=== PATIENT | female | born 1950 | race Caucasian/White ===

== ENCOUNTER 2020-05-09 00:25 | Outpatient (CLI) | payer MEDICARE, SELFPAY ==
[2020-05-09 18:04] LABS: SARS-CoV-2 RNA PCR Negative
== END 2020-05-09 00:26 | disposition home or self-care (01) ==
LOC: ANHCOVIDDT 00:25
PROVIDERS: PCP Family Medicine; Visit Provider Internal Medicine Gastroenterology
DX: Z01.818 Encounter for other preprocedural examination (principal); Z20.828 Contact with and (suspected) exposure to other viral communicable diseases
CPT/HCPCS: 87635; C9803; U0003

== ENCOUNTER 2020-05-12 02:24 | Day surgery (SDC) | payer MEDICARE, SELFPAY ==
[2020-05-08 08:16] VITALS: BMI 32.5
--- NOTE | 2020-05-12 07:00 | WPDANESEPPF ---
Anes - Initial Pre Proc Eval Procedure: Operation Date: 05/12/20 10:00 Proposed Procedures p Screening Colonoscopy - Eh Olguin MD Date/Time: 05/12/20 07:00 Surgeon: Eh Olguin MD Pre Op Diagnosis: Neoplasm Screening Patient Data Age: 70 Gender: F Height: 1.63 m Weight: 86 kg Allergies Allergy/AdvReac Type Severity Reaction Status Date / Time erythromycin base Allergy Mild rash Verified 05/12/20 08:53 Home Medications Medication Instructions Recorded Confirmed Type aspirin 81 mg chewable tablet 81 mg PO DAILY 05/27/19 05/08/20 History blood sugar diagnostic #10 each 05/27/19 03/25/20 History lancets 33 gauge #100 each 11/07/19 03/25/20 Rx pen needle, diabetic 32 gauge x #100 each 12/16/19 03/25/20 Rx 1/6 lisinopril 10 mg tablet 10 mg PO DAILY #90 tablet 02/10/20 05/08/20 Rx insulin degludec 100 unit/mL (3 34 unit SUB-Q DAILY #15 ml 02/11/20 05/08/20 Rx mL) subcutaneous pen esomeprazole magnesium 40 mg 40 mg PO DAILY #90 cap 02/13/20 05/08/20 Rx capsule,delayed release metformin 500 mg tablet,extended 500 mg PO .COMPLEX #180 tablet 02/25/20 05/08/20 Rx release 24 hr sodium,potassium,mag sulfates 17.5 480 ml PO .COMPLEX #354 ml 03/31/20 Rx gram-3.13 gram-1.6 gram oral soln liraglutide 0.6 mg/0.1 mL (18 mg/3 See Rx Instructions SUB-Q .COMPLEX 05/01/20 05/08/20 Rx mL) subcutaneous pen injector #9 ml atorvastatin 10 mg tablet 10 mg PO DAILY #90 tablet 05/04/20 05/08/20 Rx acidophilus-pectin, citrus 1 cap PO DAILY 05/08/20 05/08/20 History [Acidophilus Probiotic] Patient hx anesthesia problems: none Family hx anesthesia problems: none PMFSH Past Medical History Medical History (System 12/23/19 @ 13:41 by Chelsey Vang) CAD (coronary artery disease) Cervical radiculopathy Essential hypertension Fatty liver Hyperlipidemia Hypertensive heart disease without CHF Left hip pain Long-term insulin use Metabolic syndrome Numbness and tingling of left upper extremity Type 2 diabetes mellitus with hyperglycemia Type 2 diabetes mellitus without complications Vitamin D deficiency, unspecified Surgical History Surgical History (Updated 05/12/20 @ 09:02 by Chris Ramirez MD) History of coronary artery stent placement S/P arterial stent Family History Family History (System 12/23/19 @ 13:41 by Chelsey Vang) Mother Family history of kidney disease Family history of coronary artery disease Hypertension Father Family history of diabetes mellitus in first degree relative Family history of coronary artery disease Diabetes mellitus Sibling Family history of coronary artery disease Other Family history of cardiovascular disease Social History Social History (Updated 03/25/20 @ 14:45 by Sheree Stoner) Smoking status: Never smoker Second hand tobacco smoke exposure: No Alcohol intake: never Substance use: never Substance use type: does not use Living arrangements: with family Gender identity (if verbalized by the patient): Female Spiritual care concerns: No Anes - Eval Final PreProcedure Day of Procedure 05/12/20 07:00 Patient weight: obese Heart: regular rate and rhythm Lungs: clear to auscultation and normal air movement Airway: Mallampati scale class II Neurological: alert and oriented Last oral intake: >/= 8 hours ASA classification: III Emergent: no Anesthetic plan: proceed Anesthesia type and monitoring: general GIVS Informed Consent: The patient's anesthetic plan and its attendant risks and benefits were discussed with the patient/family/POA. Questions were solicited and answers provided to the satisfaction of the patient/family/POA.
[2020-05-12 08:54] VITALS: BP 140/65; PULSE 88; RESP 20; TEMP 36.7; O2SAT 96; BMI 33.7
[2020-05-12] MEDS: LACTATED RINGERS 1,000 ML 150 ML IV CONT (09:00)
[2020-05-12 09:05] LABS: Glucose Point of Care 168 (65-105)
--- NOTE | 2020-05-12 10:38 | PM.HPGS ---
History of Present Illness History of Present Illness Consent: Risks, benefits, and alternatives have been discussed and questions answered. Patient agrees to proceed with procedure. Chief complaint: Neoplasm Screening Narrative: Kelsey Marion is a 70 year old female here for colon polyps 2013 Review of Systems Constitutional: Constitutional: Denies headache(s) and Denies weakness Eyes: Eyes: Denies blurry vision ENT: Reports Normal hearing present, Denies headache(s) and Denies neck pain Cardiovascular: Cardiovascular: Denies chest pain and Denies dyspnea Respiratory: Respiratory: Denies dyspnea Gastrointestinal: Gastrointestinal: Reports no additional gastrointestinal complaints Genitourinary: Genitourinary: Denies dysuria Musculoskeletal: Musculoskeletal: Denies neck pain Integumentary/Breasts: Skin/Breast: Denies dry skin Neurologic: Reports Normal hearing present, Denies headache(s) and Denies weakness Psychiatric: Psychiatric: Denies anxiety Endocrine: Endocrine: Denies change in body appearance Hematologic/Lymphatic: Hematologic/Lymphatic: Denies easy bleeding Allergic/Immunologic: Allergic/Immunologic: Denies urticaria PMFSH Past Medical History Medical History (Updated 05/12/20 @ 10:39 by Eh Olguin MD) Adenomatous colon polyp CAD (coronary artery disease) Cervical radiculopathy Essential hypertension Fatty liver Hyperlipidemia Hypertensive heart disease without CHF Left hip pain Long-term insulin use Metabolic syndrome Numbness and tingling of left upper extremity Type 2 diabetes mellitus with hyperglycemia Type 2 diabetes mellitus without complications Vitamin D deficiency, unspecified Surgical History Surgical History (Updated 05/12/20 @ 09:02 by Chris Ramirez MD) History of coronary artery stent placement S/P arterial stent Family History Family History (System 12/23/19 @ 13:41 by Chelsey Vang) Mother Family history of kidney disease Family history of coronary artery disease Hypertension Father Family history of diabetes mellitus in first degree relative Family history of coronary artery disease Diabetes mellitus Sibling Family history of coronary artery disease Other Family history of cardiovascular disease Social History Social History (Updated 03/25/20 @ 14:45 by Sheree Stoner) Smoking status: Never smoker Second hand tobacco smoke exposure: No Alcohol intake: never Substance use: never Substance use type: does not use Living arrangements: with family Gender identity (if verbalized by the patient): Female Spiritual care concerns: No Meds Home Medications and Allergies Home Medications Medication Instructions Recorded Confirmed Type aspirin 81 mg chewable tablet 81 mg PO DAILY 05/27/19 05/08/20 History blood sugar diagnostic #10 each 05/27/19 03/25/20 History lancets 33 gauge #100 each 11/07/19 03/25/20 Rx pen needle, diabetic 32 gauge x #100 each 12/16/19 03/25/20 Rx 1/6 lisinopril 10 mg tablet 10 mg PO DAILY #90 tablet 02/10/20 05/08/20 Rx insulin degludec 100 unit/mL (3 34 unit SUB-Q DAILY #15 ml 02/11/20 05/08/20 Rx mL) subcutaneous pen esomeprazole magnesium 40 mg 40 mg PO DAILY #90 cap 02/13/20 05/08/20 Rx capsule,delayed release metformin 500 mg tablet,extended 500 mg PO .COMPLEX #180 tablet 02/25/20 05/08/20 Rx release 24 hr sodium,potassium,mag sulfates 17.5 480 ml PO .COMPLEX #354 ml 03/31/20 Rx gram-3.13 gram-1.6 gram oral soln liraglutide 0.6 mg/0.1 mL (18 mg/3 See Rx Instructions SUB-Q .COMPLEX 05/01/20 05/08/20 Rx mL) subcutaneous pen injector #9 ml atorvastatin 10 mg tablet 10 mg PO DAILY #90 tablet 05/04/20 05/08/20 Rx acidophilus-pectin, citrus 1 cap PO DAILY 05/08/20 05/08/20 History [Acidophilus Probiotic] Allergies Allergy/AdvReac Type Severity Reaction Status Date / Time erythromycin base Allergy Mild rash Verified 05/12/20 08:53
[2020-05-12 10:41] VITALS: BP 133/60; PULSE 52; RESP 18; O2SAT 98
--- NOTE | 2020-05-12 10:47 | SUR.PHASEII ---
POST OP FINGER STICK BLOOD GLUCOSE IS 122MG/DL.
[2020-05-12 10:48] LABS: Glucose Point of Care 122 (65-105)
[2020-05-12 10:51] VITALS: BP 135/67; PULSE 56; RESP 19; O2SAT 98
[2020-05-12 11:01] VITALS: BP 126/83; PULSE 59; RESP 19; O2SAT 98
== END 2020-05-12 11:26 | disposition home or self-care (01) ==
PROVIDERS: PCP Family Medicine; Visit Provider Internal Medicine Gastroenterology
PROC: 0DJD8ZZ Inspection of Lower Intestinal Tract, Via Natural or Artificial Opening Endoscopic (ICD-10-PCS; CPT 45378; principal; 2020-05-12 10:00)
DX: Z12.11 Encounter for screening for malignant neoplasm of colon (principal); D12.3 Benign neoplasm of transverse colon; I25.10 Atherosclerotic heart disease of native coronary artery without angina pectoris; I11.0 Hypertensive heart disease with heart failure; K76.0 Fatty (change of) liver, not elsewhere classified; E11.9 Type 2 diabetes mellitus without complications; E78.5 Hyperlipidemia, unspecified; E55.9 Vitamin D deficiency, unspecified; K57.30 Diverticulosis of large intestine without perforation or abscess without bleeding; M54.12 Radiculopathy, cervical region; Z79.4 Long term (current) use of insulin; Z95.5 Presence of coronary angioplasty implant and graft
CPT/HCPCS: 45385; 88305; C9803; J2001; J2704; J7120; U0003

== ENCOUNTER → 2020-06-10 13:56 | Outpatient (CLI) | payer MEDICARE, SELFPAY ==
--- NOTE | ~2020-06-10 | MM_ITS ---
EXAMINATION: MM screening guru BI w bronson HISTORY: Screening TECHNIQUE: Craniocaudal and mediolateral oblique 3-D tomosynthesis images were obtained and synthetic 2-D images were generated. CAD analysis was submitted and interpreted. COMPARISON: Comparison to multiple prior studies sequentially, with oldest reviewed study dated 03/18. BREAST PARENCHYMAL COMPOSITION: There are scattered areas of fibroglandular density. FINDINGS: There is no evidence of suspicious mass, calcification, or architectural distortion to sugg est malignancy in either breast. There has been no suspicious interval change. IMPRESSION: 1. No mammographic evidence of malignancy. 2. Recommend routine screening mammography in one year. BI-RADS Category 1: Negative Reviewed, dictated and finalized at location A. H WEAVER
== END ==
PROVIDERS: PCP Family Medicine; Visit Provider Physician Assistant
DX: Z12.31 Encounter for screening mammogram for malignant neoplasm of breast (principal)
CPT/HCPCS: 77063; 77067

== ENCOUNTER 2020-08-21 10:54 | Outpatient (CLI) | payer MEDICARE, SELFPAY ==
--- NOTE | ~2020-08-21 | XR_ITS ---
XR chest 2V DATE: 08/21/2020 11:19 INDICATION: Shortness of breath. Hypercalcemia. TECHNIQUE: PA and lateral views COMPARISON: 11/15/2016 two-view chest FINDINGS: Normal heart size. No hilar or mediastinal enlargement. Aortic arch calcification. No pulmonary infiltrate or consolidation, pleural effusion or pulmonary vascular congestion or pneumo thorax is detected. Diffuse osteopenia. Degenerative spurring of the thoracic spine. Surgical clips of right upper quadrant, likely due to cholecystectomy IMPRESSION: No active cardiopulmonary disease Aortic atherosclerosis Reviewed, dictated and finalized at location B. UNITY SERVICE TECHNICIAN
== END 2020-08-21 10:55 | disposition home or self-care (01) ==
PROVIDERS: PCP Family Medicine; Visit Provider Nurse Practitioner Family
DX: E83.52 Hypercalcemia (principal); R79.89 Other specified abnormal findings of blood chemistry; I70.0 Atherosclerosis of aorta
CPT/HCPCS: 71046

== ENCOUNTER 2020-09-07 09:39 | Outpatient (CLI) | payer MEDICARE, SELFPAY | END 2020-09-07 09:40 | disposition home or self-care (01) | LOC: ANHCOVIDVC 09:40 | PROVIDERS: PCP Family Medicine | DX: Z23 Encounter for immunization (principal) | CPT/HCPCS: 0001A; 91300 ==

== ENCOUNTER 2020-09-28 09:29 | Outpatient (CLI) | payer MEDICARE, SELFPAY | END 2020-09-28 09:30 | disposition home or self-care (01) | LOC: ANHCOVIDVC 09:29 | PROVIDERS: PCP Family Medicine | DX: Z23 Encounter for immunization (principal) | CPT/HCPCS: 0002A; 91300 ==

== ENCOUNTER 2020-11-27 07:32 | Outpatient (CLI) | payer MEDICARE, SELFPAY ==
--- NOTE | ~2020-11-27 | CT_ITS ---
EXAMINATION: CT abdomen pelvis wo con DATE: 11/27/2020 07:53 INDICATION: Left lower quadrant abdominal pain. TECHNIQUE: Computed tomography (CT) of the abdomen and pelvis was performed without intravenous contr ast. Automated exposure control and iterative reconstruction technique were employed. The dose-length product was 1090.93 mGy-cm. COMPARISON: CT abdomen 08/23/2013 FINDINGS: The visualized portions of the lung bases demonstrate peripheral septal thickening with arc hitectural distortion and mild bronchiectasis, consistent with chronic interstitial lung disease. A c alcified left lung nodule and calcified left hilar lymph nodes are consistent with old granulomatous disease. No pleural effusion. The heart size is normal. There are coronary artery calcifications. No pericardial effusion. Calcifications in the liver and spleen are consistent with old granulomatous di sease. There are changes of cholecystectomy. The pancreas, adrenal glands, and left kidney are normal . There is a 2.5 cm cyst in right kidney. There is no urolithiasis. There is diverticulosis of the co [place] without evidence of diverticulitis. There are no dilated loops of bowel. The appendix is not visu alized. There are no pathologically enlarged lymph nodes. There is no free intraperitoneal fluid. The re is subcutaneous mild fat stranding near the umbilicus, consistent with inflammation. There is mode rate lumbar spondylosis. IMPRESSION: 1. Mild subcutaneous inflammation near the umbilicus, which may not be clinically significant. 2. Mild chronic interstitial lung disease. Reviewed, dictated and finalized at location A. IMPRESSION: 1. Mild subcutaneous inflammation near the umbilicus, which may not be clinical ly significant. 2. Mild chronic interstitial lung disease.
== END 2020-11-27 07:33 | disposition home or self-care (01) ==
LOC: ANHIMG 07:36
PROVIDERS: PCP Family Medicine; Visit Provider Family Medicine
DX: R10.32 Left lower quadrant pain (principal)
CPT/HCPCS: 74176

== ENCOUNTER 2020-12-17 10:12 | Outpatient (CLI) | payer MEDICARE, SELFPAY ==
--- NOTE | ~2020-12-17 | CT_ITS ---
EXAMINATION: CT diagnostic chest wo con DATE: 12/17/2020 10:31 INDICATION: Chronic interstitial lung disease. TECHNIQUE: Computed tomography (CT) of the chest was performed without intravenous contrast. The dose -length product was 280.88 mGy-cm. Automated exposure control and iterative reconstruction technique were employed. COMPARISON: CT dated 11/27/2020 FINDINGS: Heart size normal. There is atherosclerosis of the aorta and coronary arteries. No signific ant pleural or pericardial effusion. There are cholecystectomy clips. There are calcified granulomas of the spleen. No thoracic lymphadenopathy. The left thyroid lobe appears either to the atrophic are surgically absent. There is an aberrant right subclavian artery. There is a 2 mm right upper lobe nod ule, likely benign. There is a calcified right upper lobe nodule, consistent with chronic granulomato us disease measuring 2-3 mm. No focal airspace consolidation. There are mild interstitial infiltrates peripherally in the lower lobes with areas of interlobular septal thickening, consistent with chroni c interstitial lung disease. There is mild bronchiectasis. IMPRESSION: 1. Mild chronic interstitial lung disease. Reviewed, dictated and finalized at location A.
== END 2020-12-17 10:13 | disposition home or self-care (01) ==
PROVIDERS: PCP Family Medicine; Visit Provider Family Medicine
DX: J84.9 Interstitial pulmonary disease, unspecified (principal)
CPT/HCPCS: 71250

== ENCOUNTER 2021-03-11 12:46 | Outpatient (CLI) | payer MEDICARE, SELFPAY ==
--- NOTE | 2021-03-13 23:45 | P.PCNPFT_ITS ---
PFT Procedure Performed PFT Procedure Performed Spirometry with Pre/Post Bronchodilator Plethysmography (Lung Vol) Diffusing Cap (DLCO) Flow Vol Loop PFT Interpretation DOS: 03/11/2021 [facility] REASON FOR TESTING: Fibrosis of the lung PULMONARY FUNCTION TESTS Results are reproducible. Spirometry: FEV1 is 78% predicted, 1.68 L. forced vital capacity is 82% predicted. The FEV1/FVC ratio is 73% normal. There is no significant change after bronchodilator administration. Lung volumes: The total lung capacity is 80% predicted, lower limit of normal. The residual volume is 65% predicted. RV/TLC is 36%, and this shows no air trapping. Airway resistance 129 cmH2O/L/sec, mildly increased. Diffusion: DLCO 74%, mildly decreased. This corrects to 98% for alveolar volume. Flow volume loop: Normal. IMPRESSION: This pulmonary function study shows normal spirometry, normal lung volumes, minimal decrease in DLCO which corrects for alveolar volume and a normal flow volume loop. There is no significant change with bronchodilator. Total lung capacity is at the low end of normal. No prior study for comparison. Kelsey Solo MD
--- NOTE | 2021-03-15 11:38 | WPDSIXMINUTE ---
Six Minute Walk Procedure Procedure Performed Pulmonary Stress Test (6 min walk) Six Minute Walk This is a 6 minute walk test. The test was performed and interpreted in accordance with the 2014 ERS/ATS task force guidelines. Findings: The patient's resting room air oxygen saturation measured by pulse oximetry was 96% and her heart rate was 67 bpm. Patient ambulated for 396 meters and oxygen saturation remained 93 to 96%. Heart rate at the end of the study was 98 bpm. The patient did not qualify for supplemental oxygen at rest or with ambulation. There are no prior studies for comparison.
--- NOTE | 2021-03-15 11:40 | WPDPFTINT ---
PFT Procedure Performed PFT Procedure Performed Spirometry with Pre/Post Bronchodilator Plethysmography (Lung Vol) Diffusing Cap (DLCO) Flow Vol Loop PFT Interpretation This is a pulmonary function test with pre and post-bronchodilator spirometry, plethysmography and diffusing capacity. The test was performed and results interpreted in accordance with the 2019 and 2005 ATS/ERS Task Force guidelines respectively using the Global Lung Function Initiative-2012 reference equations. Patient demonstrated good effort and cooperation. Reproducibility criteria were met. The quality of the pre bronchodilator spirometry maneuver was Grade A and post bronchodilator spirometry maneuver was Grade A. Findings: Spirometry: contour the inspiratory and expiratory flow tracing are normal. The pre bronchodilator FVC is 2.31 L, 82% predicted. The pre bronchodilator FEV1 is 1.68 L, 78% predicted. The FEV1: FVC ratio 73%. The post bronchodilator FVC is 2.27 L, representing a 2% decrease. The post bronchodilator FEV1 is 1.74 L, representing a 4% increase. Plethysmography: The total lung capacity is 4.05 L, 80% predicted. The functional residual capacity is 1.87 L, 64% predicted. The residual volume is 1.46 L, 65% predicted. Diffusing capacity: The absolute diffusion capacity is 15.1, 74% predicted. The diffusing capacity corrected for alveolar volume is 4.15, 98% predicted. Impression: The spirometry is normal without evidence of an obstructive abnormality. There is no significant improvement after inhaling a single dose of albuterol. There is a decreased residual volume with a normal total lung capacity. This is an abnormal but nonspecific lung volume pattern. The diffusing capacity is normal. There are no prior studies for comparison
== END 2021-03-11 12:47 | disposition home or self-care (01) ==
PROVIDERS: PCP Family Medicine; Visit Provider Nurse Practitioner
DX: J84.10 Pulmonary fibrosis, unspecified (principal)
CPT/HCPCS: 94060; 94618; 94726; 94729

== ENCOUNTER 2021-07-22 17:09 | Inpatient (IN) | payer MEDICARE, SELFPAY ==
--- NOTE | ~2021-07-22 | CT_ITS ---
EXAMINATION: CT abdomen pelvis w con INDICATION: Abdominal pain and vomiting TECHNIQUE: Computed tomographic images of the abdomen and pelvis were obtained after the administrati on of 100 cc of Omnipaque 350 intravenous contrast. The dose-length product (DLP) was 1423.81 mGy-cm. Automated exposure control and iterative reconstruction technique were employed. COMPARISON: 11/27/2020 FINDINGS: Minimal dependent atelectasis is present in the lung bases. The heart size is normal. Calci fied coronary artery atherosclerosis is noted. The gallbladder is surgically absent. There is mild en largement of the common bile duct and central intrahepatic ducts which is likely due to post cholecys tectomy state. Punctate calcifications in an otherwise normal spleen likely represent healed granulom atous disease. The liver, pancreas, and adrenal glands are normal. Cysts of the kidneys measure up to 2.5 cm on the right. There are multiple mildly dilated loops of small bowel. No discrete transition point is identified. No pathologically enlarged abdominal or pelvic lymph nodes are identified. There is no free intraperitoneal gas or evidence of bowel obstruction. Colonic diverticulosis is present w ithout evidence of diverticulitis. There is mild lumbar spondylosis. IMPRESSION: 1. Mildly dilated small bowel without discrete transition point identified, consistent with ileus padmaja maxime partial obstruction. Reviewed, dictated and finalized at location F. ODONTIST IMPRESSION: 1. Mildly dilated small bowel without discrete transition point identified, con sistent with ileus versus partial obstruction.
--- NOTE | ~2021-07-22 | XR_ITS ---
XR abdomen/kub 1V DATE: 07/24/2021 12:42 INDICATION: NG tube placement TECHNIQUE: 2 AP views on 07/24/2021 at 1237 1238 hours COMPARISON: None FINDINGS: A nasogastric tube is present in the lower body of the stomach, proximal side-port approxim ately 5 cm distal to the diaphragmatic hiatus. Surgical clips, right upper quadrant due to cholecystectomy. Moderate elevation the right leaf of the diaphragm. Minimal infiltrate or atelectasis in the lung bas es. IMPRESSION: NG tube in lower body of stomach Reviewed, dictated and finalized at Location A. Reviewed, dictated and finalized at location A. D ENGINEER
[2021-07-22 17:28] VITALS: BP 144/80; PULSE 103; RESP 18; TEMP 35.9; O2SAT 96
--- NOTE | 2021-07-22 17:35 | ECG_ITS ---
Measurements Intervals [place] Rate: 80 P: 19 [place]: 208 QRS: -5 QRSD: 93 T: 19 QT: 368 QTc: 426 Interpretive Statements SINUS RHYTHM LOW QRS VOLTAGE IN PRECORDIAL LEADS VOLTAGE CRITERIA FOR LVH BORDERLINE R WAVE PROGRESSION, ANTERIOR LEADS INFERIOR INFARCT, AGE INDETERMINATE BASELINE ARTIFACT- I, II, III, AVR, AVL, AVF ABNORMAL ECG Electronically Signed On 07-22-2021 20:06:58 SUPPLY CHAIN CONSULTANT by Oneil Huizar D.O.
[2021-07-22 18:04] LABS: Basophils Absolute Auto 0.08 K/mm3 (0.00-0.10); Basophils Percent Auto 0.4 % (0.0-1.0); Eosinophils Absolute Auto 0.06 K/mm3 (0.02-0.50); Eosinophils Percent Auto 0.3 % (1.0-6.0); Hematocrit 46.4 % (35.0-42.0); Hemoglobin 14.4 g/dL (11.7-13.8); Immature Granulocyte Absolute 0.07 K/mm3 (0.00-0.00); Immature Granulocyte Percent A 0.4 % (0.0-0.0); Lymphocytes Absolute Auto 2.23 K/mm3 (1.10-4.50); Lymphocytes Percent Auto 12.5 % (18.0-42.0); Mean Corpuscular Hemoglobin 27.5 pg (27.0-31.0); Mean Corpuscular Volume 88.5 fL (78.0-102.0); Mean Platelet Volume 12.6 fl (9.2-11.8); Monocytes Absolute Auto 0.78 K/mm3 (0.10-0.90); Monocytes Percent Auto 4.4 % (2.0-11.0); Neutrophils Absolute Auto 14.7 K/mm3 (1.7-7.2); Platelet Count Result 369 K/mm3 (150-420); Red Blood Count 5.24 M/mm3 (4.20-5.40); Red Cell Distribution Width 14.6 % (11.6-14.4); White Blood Count 17.9 K/mm3 (4.8-10.8)
[2021-07-22] MEDS: SODIUM CHLORIDE 0.9% IV 1,000 ML 999 ML IV CONT (18:04)
[2021-07-22] MEDS: ONDANSETRON INJ 4 MG/2 ML VIAL IV PUSH ×2 (18:04→20:54)
[2021-07-22] MEDS: MORPHINE SULFATE (*CRX) 4 MG/ML INJ 2 MG IV PUSH (18:04)
[2021-07-22 18:07] LABS: Add Urine Microscopic? YES; Appearance Urine Sl Cloudy (Clear); Bilirubin Urine 2+ (Negative); Blood Urine Negative (Negative); Color Urine Dark Yellow (Yellow); Glucose Urine UA Negative (Negative); Ketones Urine Trace (Negative); Leukocyte Esterase Ur Trace (Negative); Nitrate Urine Negative (Negative); Protein Urine 2+ (Negative); Specific Grav Ur >= 1.030 (1.010-1.020); pH Urine 5.5 (5.0-8.0)
[2021-07-22 18:16] LABS: Bacteria Urine 1+ /hpf; RBC Urine 0-2 /hpf (0-2); Squamous Epithelial Cell Urine Moderate /hpf (Few); WBC Urine 16-20 /hpf (0-3)
[2021-07-22 18:18] LABS: Partial Thromboplastin Time 26.3 SEC (23.90-30.70)
[2021-07-22 18:29] LABS: Alanine Aminotransferase 43 U/L (14-59); Albumin Level 4.1 g/dL (3.4-5.0); Alkaline Phosphatase 69 U/L (46-116); Anion Gap 10 mmol/L (8-16); Aspartate Amino Transferase 34 U/L (15-37); Bilirubin,Total 0.8 mg/dL (0.00-1.00); Blood Urea Nitrogen 12 mg/dL (7-18); CRP < 0.5 mg/dL (0.0-0.9); Calcium 9.9 mg/dL (8.5-10.1); Carbon Dioxide 29 mmol/L (21-32); Chloride 98 mmol/L (98-108); Estimated CRCL calculation 38 ml/min; Estimated Glomerular Filt Rate 39; Glucose 196 mg/dL (70-99); Lipase 123 U/L (73-393); Osmolality Calculated 288 mOsm/kg (285-295); Potassium 4.1 mmol/L (3.5-5.1); Sodium 137 mmol/L (136-145); Total Protein 8.6 g/dL (6.4-8.2); Troponin I 4.2 ng/L (0.00-60.4)
[2021-07-22 18:31] LABS: Lactic Acid Reflex 1.4 mmol/L (0.4-2.0)
--- NOTE | 2021-07-22 19:32 | ED.NAVMDI ---
HPI - Nausea/Vomiting/Diarrhea General Chief complaint: Nausea/Vomiting/Diarrhea Stated complaint: stomach pain, vomiting Source: patient Mode of arrival: ambulatory Limitations: no limitations History of Present Illness HPI Narrative: This is a 71-year-old female that presents with some 1 day history of nausea with numerous episodes of vomiting according the patient she had approximately 8 episodes of vomiting continued nausea with diffuse abdominal discomfort and pain that radiates into her right upper quadrant, the patient is status post cholecystectomy, and has had no diarrhea or constipation no fever chills, and has had a partial bowel obstruction in the past as well. Currently there is no chest pain no shortness of breath no dysuria no flank pain. MD elicited complaint: nausea, vomiting and abdominal pain Pertinent past history: cyclical vomiting and bowel obstruction Onset (ago): day(s) Description of vomiting: food contents Associated nausea: Yes Associated abdominal pain: Yes Location of pain: diffuse Radiation: diffuse Related Data Home Medications Medication Instructions Recorded Confirmed aspirin 81 mg chewable tablet 81 mg PO DAILY 05/27/19 07/22/21 blood sugar diagnostic #10 each 05/27/19 07/22/21 acidophilus-pectin, citrus 1 cap PO DAILY 05/08/20 07/22/21 [Acidophilus Probiotic] Allergies Allergy/AdvReac Type Severity Reaction Status Date / Time erythromycin base Allergy Mild rash Verified 07/22/21 17:34 Review of Systems Review of Systems: All systems reviewed & are unremarkable except as noted in HPI and below PMFSH Past Medical History Medical History Adenomatous colon polyp CAD (coronary artery disease) Cervical radiculopathy Essential hypertension Fatty liver Hyperlipidemia Hypertensive heart disease without CHF Intention tremor Left hip pain Long-term insulin use Metabolic syndrome Numbness and tingling of left upper extremity Type 2 diabetes mellitus with hyperglycemia Type 2 diabetes mellitus without complications Vitamin D deficiency, unspecified Surgical History Surgical History History of coronary artery stent placement S/P arterial stent Family History Family History Mother Family history of kidney disease Family history of coronary artery disease Hypertension Father Family history of diabetes mellitus in first degree relative Family history of coronary artery disease Diabetes mellitus Sibling Family history of coronary artery disease Other Family history of cardiovascular disease Social History Social History Social History: Smoking status: Never smoker Second hand tobacco smoke exposure: No Alcohol intake: never Substance use: never Substance use type: does not use Gender identity (if verbalized by the patient): Female Sexual Orientation (if Verbalized by the Patient): Straight or Heterosexual Spiritual care concerns: No Exam Const: General: no acute distress and alert Orientation/consciousness: patient oriented x3 HENMT: Head: normal to inspection Eyes: Cornea: corneas normal Pupils: Equal, round and reactive pupils present EOM: EOMs intact bilaterally Neck: Neck: normal visual inspection, no lymphadenopathy and no meningeal signs Resp: Effort & Inspection: normal respiratory effort Auscultation: clear to auscultation bilaterally Cardio: Rate: regular rate Rhythm: regular rhythm GI: GI Palp: Yes Tenderness to palpation present (GI) Percussion: Yes normal to percussion Auscultation: Hyperactive bowel sounds present : General: Yes no CVA tenderness Urinary Catheter: Urinary Catheter: patent and draining and urine clear Back/Spine/Pelvis: Back: no CVA tenderness Skin: General skin ex
[2021-07-22 19:37] VITALS: PULSE 103; RESP 16; O2SAT 97
[2021-07-22 20:00] VITALS: BP 138/92; PULSE 93; RESP 16; TEMP 36.2; O2SAT 97
[2021-07-22] MEDS: SODIUM CHLORIDE 0.9% IV 1,000 ML 100 ML IV CONT (20:30)
--- NOTE | 2021-07-22 20:30 | ADMGEN ---
This patient, Kelsey Marion, was admitted to 2nd Floor Room 227-2. Patient/family oriented to hospital policies and general routines including ID bracelet, bed and alarms, visiting hours, pain management, procedures, bathroom and other care routines, personal items, smoking policy, room service/diet, and visiting hours. Information on how to activate the Rapid Response Team has been discussed. Patient/Family are encouraged to report perceived risks to care and to ask questions if they do not understand what they are told or what they should do.
[2021-07-22 20:32] VITALS: BMI 34.4
[2021-07-22] MEDS: ENOXAPARIN 30 MG/0.3 ML SYRINGE SUB-Q (20:50)
[2021-07-22 20:54] LABS: Glucose Point of Care 146 mg/dl (65-105)
[2021-07-22] MEDS: MORPHINE SULFATE (*CRX) 2 MG/ML INJ IV PUSH (20:54)
[2021-07-23] VITALS: BP 118/53; PULSE 83; RESP 18; TEMP 36.6; O2SAT 98
[2021-07-23 04:00] VITALS: BP 125/63; PULSE 75; RESP 16; TEMP 36.1; O2SAT 95
[2021-07-23 05:37] LABS: Basophils Absolute Auto 0.04 K/mm3 (0.00-0.10); Basophils Percent Auto 0.3 % (0.0-1.0); Eosinophils Absolute Auto 0.03 K/mm3 (0.02-0.50); Eosinophils Percent Auto 0.2 % (1.0-6.0); Hematocrit 41.1 % (35.0-42.0); Hemoglobin 12.5 g/dL (11.7-13.8); Immature Granulocyte Absolute 0.04 K/mm3 (0.00-0.00); Immature Granulocyte Percent A 0.3 % (0.0-0.0); Immature Platelet Fraction Pct 7.3 % (1.0-7.0); Lymphocytes Absolute Auto 2.59 K/mm3 (1.10-4.50); Lymphocytes Percent Auto 20.4 % (18.0-42.0); Mean Corpuscular HGB Conc 30.4 g/dL (32.0-36.0); Mean Corpuscular Hemoglobin 27.4 pg (27.0-31.0); Mean Corpuscular Volume 90.1 fL (78.0-102.0); Mean Platelet Volume 12.9 fl (9.2-11.8); Monocytes Absolute Auto 0.75 K/mm3 (0.10-0.90); Monocytes Percent Auto 5.9 % (2.0-11.0); Neutrophils Absolute Auto 9.3 K/mm3 (1.7-7.2); Neutrophils Percent Auto 72.9 % (50.0-70.0); Platelet Count Result 277 K/mm3 (150-420); Red Blood Count 4.56 M/mm3 (4.20-5.40); Red Cell Distribution Width 14.6 % (11.6-14.4); White Blood Count 12.7 K/mm3 (4.8-10.8)
[2021-07-23] MEDS: SODIUM CHLORIDE 0.9% IV 1,000 ML 100 ML IV CONT ×2 (06:01→16:47)
[2021-07-23 06:03] LABS: Lactic Acid Reflex 1.5 mmol/L (0.4-2.0)
[2021-07-23] MEDS: ONDANSETRON INJ 4 MG/2 ML VIAL IV PUSH ×2 (07:55→21:00)
[2021-07-23] MEDS: MORPHINE SULFATE (*CRX) 2 MG/ML INJ IV PUSH ×2 (07:55→21:01)
[2021-07-23 08:00] VITALS: BP 118/59; PULSE 77; RESP 17; TEMP 36.2; O2SAT 94
[2021-07-23 08:59] LABS: Glucose Point of Care 139 mg/dl (65-105)
[2021-07-23] MEDS: ENOXAPARIN 30 MG/0.3 ML SYRINGE SUB-Q ×2 (09:54→20:57)
[2021-07-23] MEDS: lisinopriL 10 MG TABLET PO (09:54)
[2021-07-23] MEDS: ATORVASTATIN 10 MG TABLET PO (09:54)
[2021-07-23] MEDS: ASPIRIN 81 MG CHEWABLE TABLET PO (09:54)
[2021-07-23] MEDS: PANTOPRAZOLE 40 MG TABLET PO (09:54)
[2021-07-23] MEDS: SACCHAROMYCES BOULARDII 250 MG CAPSULE PO ×2 (11:17→18:46)
[2021-07-23 12:00] VITALS: BP 120/77; PULSE 77; RESP 17; TEMP 36.5; O2SAT 94
[2021-07-23 12:34] LABS: Glucose Point of Care 123 mg/dl (65-105)
[2021-07-23 16:00] VITALS: BP 118/53; PULSE 77; RESP 17; TEMP 36.2; O2SAT 94
[2021-07-23 18:52] LABS: Glucose Point of Care 123 mg/dl (65-105)
--- NOTE | 2021-07-23 18:54 | PM.IMHP ---
H&P: HPI History of Present Illness Date/Time: 07/23/21 18:54 Kelsey Marion is a 71 year old female admitted for Small Bowel Obstruction and Vomiting. Pt states she had a small bowel obstruction about 6 years ago and her gallbladder removed about 15 years ago. Pt states she began to have some vomiting yesterday then abdominal pain in the RUQ. The abdominal pain is the same she experienced with previous small bowel obstruction. Currently Pt is resting well with little pain but does increase quite a lot with palpation to a 7/10. She is getting Morphine for pain. Around 1900 hours she states she started doing her Yoga exercises and was able to pass flatus. Pt has no CP. SOB, N/V/D, Unfortunately no stools, no fevers, no chills. Chief Complaint: Abdominal Pain Review of Systems Constitutional: Constitutional: Reports body ache(s), Denies chills and Denies fever(s) Cardiovascular: Cardiovascular: Reports no additional cardiovascular complaints, Denies chest pain, Denies chest pain at rest and Denies chest pain with activity Respiratory: Respiratory: Reports no additional respiratory complaints, Denies cough, Denies dyspnea and Denies dyspnea on exertion Gastrointestinal: Gastrointestinal: Reports as per HPI, Reports abdominal pain, Denies nausea and Denies vomiting Genitourinary: Genitourinary: Reports no additional female genitourinary complaints Musculoskeletal: Musculoskeletal: Reports no additional musculoskeletal complaints Neurologic: Reports system reviewed and no additional complaints, except as documented Psychiatric: Psychiatric: Reports no additional psychiatric complaints PMFSH Past Medical History Medical History Adenomatous colon polyp CAD (coronary artery disease) Cervical radiculopathy Essential hypertension Fatty liver Hyperlipidemia Hypertensive heart disease without CHF Intention tremor Left hip pain Long-term insulin use Metabolic syndrome Numbness and tingling of left upper extremity Type 2 diabetes mellitus with hyperglycemia Type 2 diabetes mellitus without complications Vitamin D deficiency, unspecified Surgical History Surgical History History of coronary artery stent placement S/P arterial stent Family History Family History Mother Family history of kidney disease Family history of coronary artery disease Hypertension Father Family history of diabetes mellitus in first degree relative Family history of coronary artery disease Diabetes mellitus Sibling Family history of coronary artery disease Other Family history of cardiovascular disease Social History Social History Social History: Smoking status: Never smoker Second hand tobacco smoke exposure: No Alcohol intake: never Substance use: never Substance use type: does not use Gender identity (if verbalized by the patient): Female Sexual Orientation (if Verbalized by the Patient): Straight or Heterosexual Spiritual care concerns: No Meds Home Medications and Allergies Home Medications Medication Instructions Recorded Confirmed Type aspirin 81 mg chewable tablet 81 mg PO DAILY 05/27/19 07/22/21 History blood sugar diagnostic #10 each 05/27/19 07/22/21 History lancets 33 gauge #100 each 11/07/19 07/22/21 Rx acidophilus-pectin, citrus 1 cap PO DAILY 05/08/20 07/22/21 History [Acidophilus Probiotic] esomeprazole magnesium 40 mg 40 mg PO DAILY #90 cap 12/08/20 07/22/21 Rx capsule,delayed release lisinopril 10 mg tablet 10 mg PO DAILY #90 tablet 12/08/20 07/22/21 Rx metformin 500 mg tablet,extended 1,000 mg .ROUTE BID #360 tablet 03/19/21 07/22/21 Rx release 24 hr insulin degludec 100 unit/mL (3 See Rx Instructions .ROUTE 03/29/21 07/22/21 Rx mL) subcutaneous pen .COM
[2021-07-23 20:00] VITALS: BP 124/59; PULSE 74; RESP 18; TEMP 36.4; O2SAT 95
--- NOTE | 2021-07-23 20:00 | PC.NURSE ---
Upon assessment pt is sitting in bed watching TV, c/o slight pain to upper Rt abd and pain in upper Lt quadrant on palpation. B.S. noted active in all quads. 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 Pt is up amb. to BR per self and has call kahn at side. No other c/o at this time.
[2021-07-23 21:57] LABS: Glucose Point of Care 122 mg/dl (65-105)
[2021-07-24] VITALS: BP 104/55; PULSE 64; RESP 18; TEMP 36.2; O2SAT 95
--- NOTE | 2021-07-24 | PC.NURSE ---
Pt resting quietly in bed and doesnt voice any c/o abdominal pain or discomfort.
--- NOTE | 2021-07-24 00:55 | PC.NURSE ---
New bag of IV fluid infusing as ordered.
--- NOTE | 2021-07-24 02:10 | PC.NURSE ---
Pt aslleep and no signs of nausea noted.
[2021-07-24] MEDS: SODIUM CHLORIDE 0.9% IV 1,000 ML 100 ML IV CONT ×2 (02:55→15:51)
[2021-07-24 04:00] VITALS: BP 115/54; PULSE 70; RESP 20; TEMP 36.6; O2SAT 95
--- NOTE | 2021-07-24 04:10 | PC.NURSE ---
Pt's vital signs taken and pt doesnt voice any c/o nausea or abdominal pain.
[2021-07-24 06:20] LABS: Hematocrit 35.2 % (35.0-42.0); Hemoglobin 10.5 g/dL (11.7-13.8); Mean Corpuscular HGB Conc 29.8 g/dL (32.0-36.0); Mean Corpuscular Hemoglobin 27.3 pg (27.0-31.0); Mean Corpuscular Volume 91.7 fL (78.0-102.0); Mean Platelet Volume 12.8 fl (9.2-11.8); Platelet Count Result 239 K/mm3 (150-420); Red Blood Count 3.84 M/mm3 (4.20-5.40); Red Cell Distribution Width 14.7 % (11.6-14.4); White Blood Count 7.2 K/mm3 (4.8-10.8)
--- NOTE | 2021-07-24 06:25 | PC.NURSE ---
Pt resting in bed quietly and doesnt voice any c/o abdominal pain. Pt said she passed gas during the night.
[2021-07-24 06:30] LABS: Anion Gap 7 mmol/L (8-16); Blood Urea Nitrogen 9 mg/dL (7-18); Calcium 8.1 mg/dL (8.5-10.1); Carbon Dioxide 26 mmol/L (21-32); Chloride 107 mmol/L (98-108); Estimated CRCL calculation 53 ml/min; Estimated Glomerular Filt Rate 60; Glucose 110 mg/dL (70-99); Osmolality Calculated 289 mOsm/kg (285-295); Potassium 3.7 mmol/L (3.5-5.1); Sodium 140 mmol/L (136-145)
[2021-07-24 08:00] VITALS: BP 123/53; PULSE 68; RESP 16; TEMP 36.2; O2SAT 98
[2021-07-24] MEDS: lisinopriL 10 MG TABLET PO (09:12)
[2021-07-24] MEDS: ASPIRIN 81 MG CHEWABLE TABLET PO (09:12)
[2021-07-24] MEDS: ATORVASTATIN 10 MG TABLET PO (09:12)
[2021-07-24] MEDS: ENOXAPARIN 30 MG/0.3 ML SYRINGE SUB-Q ×2 (09:12→20:40)
[2021-07-24] MEDS: PANTOPRAZOLE 40 MG TABLET PO (09:13)
[2021-07-24] MEDS: SACCHAROMYCES BOULARDII 250 MG CAPSULE PO (09:13)
--- NOTE | 2021-07-24 09:17 | PM.IMPN ---
Progress Note: A&P Assessment and Plan (1) Partial small bowel obstruction: Code(s): K56.600 - Partial intestinal obstruction, unspecified as to cause <Kyle MaguireMICHAEL coradoC - Last Filed: 07/24/21 16:43> Status: Acute <Kyle CallesNORM-C - Last Filed: 07/24/21 16:43> Assessment and Plan: Bowel rest, Rocephin, IVF NS @ 100/h, Morphine for pain, Zofran (Pt states this works well), Pt states she has passed flatus 07/24/2021 NG to LIS draining bile, abdominal pain mostly left side, very quiet abdomen to absent only a few bowel sounds per 5 minutes of auscultation, no vomiting, passing flatus, pain controlled. <Kyle MaguireMICHAEL coradoC - Last Filed: 07/24/21 16:43> (2) Vomiting: Code(s): R11.10 - Vomiting, unspecified <Kyle MaguireMICHAEL coradoC - Last Filed: 07/24/21 16:43> Status: Acute <Kyle MaguireNORM corado-C - Last Filed: 07/24/21 16:43> Assessment and Plan: Pt has not had any more vomiting since hospitalized, [place], NPO, discussed NG tube Pt refused, IVF as noted above, had 1 Liter bolus in ER 07/24/2021 Has not had any vomiting <Kyle Bassett NORM Calles-C - Last Filed: 07/24/21 16:43> (3) Type 2 diabetes mellitus without complications: Qualifiers: Diabetes mellitus electroencephalograph technologist insulin use: with intermediate use Qualified Code(s): E11.9 - Type 2 diabetes mellitus without complications; Z79.4 - materials mgmt tech (current) use of insulin <Kyle TorresJOSE Garsia - Last Filed: 07/24/21 16:43> Code(s): E11.9 - Type 2 diabetes mellitus without complications <Kyle TorresCourtney Calles APN-C - Last Filed: 07/24/21 16:43> Status: Acute <Kyle TorresCourtney Calles APN-Brianda - Last Filed: 07/24/21 16:43> Assessment and Plan: ACHS glucose monitoring, continue Glargine, SSI, Metformin, Januvia, hypoglycemic protocol, make adjustments to medications as needed, will transition to diabetid diet when able 07/24/2021 Pt is currently NPO, monitoring glucose. <Kyle CallesNORM-C - Last Filed: 07/24/21 16:43> (4) Hyperlipidemia: Code(s): E78.5 - Hyperlipidemia, unspecified <Kyle CallesNORM-C - Last Filed: 07/24/21 16:43> Status: Acute <Kyle Calles COMPLIANCE TESTING ANALYST-C - Last Filed: 07/24/21 16:43> Assessment and Plan: Continue Atorvastatin <Kyle CallesNORM-C - Last Filed: 07/24/21 16:43> (5) Essential hypertension: Code(s): I10 - Essential (primary) hypertension <Kyle CallesNORM-C - Last Filed: 07/24/21 16:43> Status: Acute <Kyle CallesNORM-C - Last Filed: 07/24/21 16:43> Assessment and Plan: Continue Lisinopril <Kyle CallesNORM-C - Last Filed: 07/24/21 16:43> (6) CAD (coronary artery disease): Code(s): I25.10 - Atherosclerotic heart disease of [place] coronary artery without angina pectoris <Kyle CallesNORM-C - Last Filed: 07/24/21 16:43> Status: Acute <Kyle CallesNORM-C - Last Filed: 07/24/21 16:43> Assessment and Plan: Continue ASA <Kyle CallesNORM-C - Last Filed: 07/24/21 16:43> Subjective Date/time seen: 07/24/21 09:17 Pt still has some abdominal pain. She states that she has been belching and has heat burn a few times. Her abdomen remains quite tender and quiet to auscultation. Pt states she has been passing flatus. Started NG tube to LIS. Pt has no chest pain, SOB, body aches, nausea, or vomiting at this time. Her pain is tolerable and she has not requested morphine by this afternoon at 1600 hours. Pt states she does not feel bloated or that her abdomen looks or feels bigger. <JOSE Lundberg - Last Filed: 07/24/21 16:43> Review of Systems Review of Systems: All systems reviewed & are unremarkable except as noted in HPI and below <JOSE Lundberg - Last Filed: 07/24/21 16:43> Exam Const: General: cooperative, healthy appearing, comfortable, no acute distress, well developed, alert, awake and
[2021-07-24 12:00] VITALS: BP 137/62; PULSE 63; RESP 18; TEMP 35.8; O2SAT 95
[2021-07-24 13:22] LABS: Glucose Point of Care 112 mg/dl (65-105)
[2021-07-24] MEDS: BENZOCAINE/MENTHOL (*BKC) LOZENGE 1 LOZENGE PO (15:51)
[2021-07-24 16:00] VITALS: BP 128/82; PULSE 82; RESP 19; TEMP 36.3; O2SAT 94
[2021-07-24 20:00] VITALS: BP 152/72; PULSE 77; RESP 18; TEMP 36.1; O2SAT 96
[2021-07-24 20:46] LABS: Glucose Point of Care 109 mg/dl (65-105)
[2021-07-25] VITALS: BP 137/66; PULSE 72; RESP 18; TEMP 36.4
[2021-07-25] MEDS: SODIUM CHLORIDE 0.9% IV 1,000 ML 100 ML IV CONT (03:46)
--- NOTE | 2021-07-25 04:23 | PC.NURSE ---
patient reports difficulty resting due to NG tube and IV. Call light in reach. Pain rated at 2. Pain is no longer sharp or cramping. Bowel sounds present reports she has passed gas
[2021-07-25 06:11] LABS: Hematocrit 33.6 % (35.0-42.0); Hemoglobin 10.6 g/dL (11.7-13.8); Mean Corpuscular HGB Conc 31.5 g/dL (32.0-36.0); Mean Corpuscular Hemoglobin 28.5 pg (27.0-31.0); Mean Corpuscular Volume 90.3 fL (78.0-102.0); Mean Platelet Volume 12.8 fl (9.2-11.8); Platelet Count Result 237 K/mm3 (150-420); Red Blood Count 3.72 M/mm3 (4.20-5.40); Red Cell Distribution Width 14.3 % (11.6-14.4); White Blood Count 8.4 K/mm3 (4.8-10.8)
[2021-07-25 06:29] LABS: Anion Gap 11 mmol/L (8-16); Blood Urea Nitrogen 7 mg/dL (7-18); Calcium 8.3 mg/dL (8.5-10.1); Carbon Dioxide 25 mmol/L (21-32); Chloride 106 mmol/L (98-108); Estimated CRCL calculation 60 ml/min; Estimated Glomerular Filt Rate > 60; Glucose 99 mg/dL (70-99); Osmolality Calculated 292 mOsm/kg (285-295); Potassium 3.5 mmol/L (3.5-5.1); Sodium 142 mmol/L (136-145)
[2021-07-25 08:00] VITALS: BP 140/60; PULSE 78; RESP 18; TEMP 36.8
[2021-07-25 08:55] LABS: Glucose Point of Care 109 mg/dl (65-105)
--- NOTE | 2021-07-25 09:30 | PM.IMPN ---
Progress Note: A&P Assessment and Plan (1) Partial small bowel obstruction: Code(s): K56.600 - Partial intestinal obstruction, unspecified as to cause Status: Acute Assessment and Plan: Bowel rest, Rocephin, IVF NS @ 100/h, Morphine for pain, Zofran (Pt states this works well), Pt states she has passed flatus 07/24/2021 NG to LIS draining bile, abdominal pain mostly left side, very quiet abdomen to absent only a few bowel sounds per 5 minutes of auscultation, no vomiting, passing flatus, pain controlled. (2) Vomiting: Code(s): R11.10 - Vomiting, unspecified Status: Acute Assessment and Plan: Pt has not had any more vomiting since hospitalized, Zofran, NPO, discussed NG tube Pt refused, IVF as noted above, had 1 Liter bolus in ER 07/24/2021 Has not had any vomiting (3) Type 2 diabetes mellitus without complications: Qualifiers: Diabetes mellitus mcfp insulin use: with intermediate frame tender use Qualified Code(s): E11.9 - Type 2 diabetes mellitus without complications; Z79.4 - ad terminal makeup operator (current) use of insulin Code(s): E11.9 - Type 2 diabetes mellitus without complications Status: Acute Assessment and Plan: ACHS glucose monitoring, continue Glargine, SSI, Metformin, Januvia, hypoglycemic protocol, make adjustments to medications as needed, will transition to diabetid diet when able 07/24/2021 Pt is currently NPO, monitoring glucose. (4) Hyperlipidemia: Code(s): E78.5 - Hyperlipidemia, unspecified Status: Acute Assessment and Plan: Continue Atorvastatin (5) Essential hypertension: Code(s): I10 - Essential (primary) hypertension Status: Acute Assessment and Plan: Continue Lisinopril (6) CAD (coronary artery disease): Code(s): I25.10 - Atherosclerotic heart disease of [place] coronary artery without angina pectoris Status: Acute Assessment and Plan: Continue ASA Subjective Date/time seen: 07/25/21 09:30 Objective Data Vital Signs Vital Signs: Vital Signs - 24 hr 07/24/21 12:00 07/24/21 16:00 07/24/21 20:00 Temperature 96.5 F L 97.4 F L 96.9 F L Pulse Rate 63 82 77 Respiratory Rate 18 19 18 Blood Pressure 137/62 128/82 152/72 H Pulse Oximetry 95 94 96 07/25/21 00:00 07/25/21 08:00 Temperature 97.6 F 98.3 F Pulse Rate 72 78 Respiratory Rate 18 18 Blood Pressure 137/66 140/60 Pulse Oximetry Intake/Output Intake/Output: Intake & Output 07/22/21 07/23/21 07/24/21 07/25/21 23:59 23:59 23:59 23:59 Intake Total 1050 2001.667 2050 1000 Output Total 550 500 750 Balance 1050 6594.794 8791 250 Meds/Results Medications: Active Medications Generic Name Dose Route Start Last Admin Trade Name Freq PRN Reason Stop Dose Admin Aspirin 81 mg 07/23/21 09:00 07/24/21 09:12 Aspirin 81 Mg Chewable Tablet PO 81 mg DAILY RAMESH Administration Atorvastatin Calcium 10 mg 07/23/21 09:00 07/24/21 09:12 Atorvastatin 10 Mg Tablet PO 10 mg DAILY RAMESH Administration Benzocaine 1 lozenge 07/24/21 14:39 Benzocaine/Menthol (*Bkc) Lozenge PO PRN PRN Sore Throat Dextrose 12.5 gm 07/22/21 19:39 Dextrose 50% 25 Gm/50 Ml Syringe IV PUSH PRN PRN Hypoglycemia Protocol Enoxaparin Sodium 30 mg 07/22/21 21:00 07/24/21 20:40 Enoxaparin 30 Mg/0.3 Ml Syringe SUB-Q 30 mg Q12HR RAMESH Administration Glucagon 1 mg 07/22/21 19:39 Glucagon For Inj 1 Mg Vial IM PRN PRN Hypoglycemia Protocol Glucose 15 gm 07/22/21 19:39 Glucose Oral Gel 15 Gm Of Glucse In 37.5 Gm Tube PO PRN PRN Hypoglycemia Protocol Sodium Chloride 1,000 mls @ 100 mls/hr 07/22/21 19:40 07/25/21 03:46 Normal Saline Iv IV CONT 100 mls/hr .Q10H RAMESH Administration Dextrose 1,000 mls @ 100 mls/hr 07/22/21 19:39 Dextrose 5% 1,000 Ml IVPB PRN PRN Hypoglycemia Protocol Ceftriaxone Sodium/Dextrose 1 gm in 50 mls @ 100 mls
[2021-07-25] MEDS: ENOXAPARIN 30 MG/0.3 ML SYRINGE SUB-Q (10:45)
[2021-07-25 11:45] LABS: Glucose Point of Care 103 mg/dl (65-105)
[2021-07-25 15:35] VITALS: BP 147/62; PULSE 68; RESP 16; TEMP 36.6; O2SAT 97
--- NOTE | 2021-07-25 15:41 | PC.NURSE ---
1300 several area [facility] called with request for bed. no beds available at this time. 1530 pat had a large soft formed stool. up ad estefani in room. sitting in chair. wants ng tube out. explained I will let doctor know and he will decide when it will come out. Dr. Willingham aware. 1540 [facility] called back to talk with dr Willingham. call transferred to him.
--- NOTE | 2021-07-25 16:16 | PM.TDS ---
Transfer Discharge Sum: Prov Provider Date of admission: 07/22/21 19:36 Primary care physician: Sammy Quick MD Admitting clinician: Germán Block MD DS: Admitting Diagnosis Discharge Date 07/25/2021 Admitting Diagnosis small bowel obstruction DS: Discharge Diagnosis Discharge Diagnosis (1) Partial small bowel obstruction: Code(s): K56.600 - Partial intestinal obstruction, unspecified as to cause Status: Acute (2) Vomiting: Qualifiers: Nausea presence: with nausea Vomiting type: bilious vomiting Qualified Code(s): R11.14 - Bilious vomiting Code(s): R11.10 - Vomiting, unspecified Status: Acute Transfer Discharge Sum: Med Medications Active and Home Medications: Home Medications aspirin 81 mg chewable tablet 81 mg PO DAILY 05/27/19 [History Confirmed 07/22/21] blood sugar diagnostic #10 each 05/27/19 [History Confirmed 07/22/21] lancets 33 gauge #100 each 11/07/19 [Rx Confirmed 07/22/21] acidophilus-pectin, citrus [Acidophilus Probiotic] 1 cap PO DAILY 05/08/20 [History Confirmed 07/22/21] esomeprazole magnesium 40 mg capsule,delayed release 40 mg PO DAILY #90 cap 12/08/20 [Rx Confirmed 07/22/21] lisinopril 10 mg tablet 10 mg PO DAILY #90 tablet 12/08/20 [Rx Confirmed 07/22/21] metformin 500 mg tablet,extended release 24 hr 1,000 mg .ROUTE BID #360 tablet 03/19/21 [Rx Confirmed 07/22/21] insulin degludec 100 unit/mL (3 mL) subcutaneous pen See Rx Instructions .ROUTE .COMPLEX #15 ml 03/29/21 [Rx Confirmed 07/22/21] pen needle, diabetic 32 gauge x 1/6 #100 each 04/28/21 [Rx Confirmed 07/22/21] sitagliptin 100 mg tablet 100 mg PO DAILY #90 tablet 05/14/21 [Rx Confirmed 07/22/21] atorvastatin 10 mg tablet 10 mg PO DAILY #90 tablet 06/10/21 [Rx Confirmed 07/22/21] Active Medications Aspirin (Aspirin 81 Mg Chewable Tablet) 81 mg PO DAILY [facility] Last Admin: 07/25/21 10:46 Dose: Not Given Documented by: Atorvastatin Calcium (Atorvastatin 10 Mg Tablet) 10 mg PO DAILY [facility] Last Admin: 07/25/21 10:46 Dose: Not Given Documented by: Benzocaine (Benzocaine/Menthol (*Bkc) Lozenge) 1 lozenge PO PRN PRN PRN Reason: Sore Throat Dextrose (Dextrose 50% 25 Gm/50 Ml Syringe) 12.5 gm IV PUSH PRN PRN; Protocol PRN Reason: Hypoglycemia Enoxaparin Sodium (Enoxaparin 30 Mg/0.3 Ml Syringe) 30 mg SUB-Q Q12HR [facility] Last Admin: 07/25/21 10:45 Dose: 30 mg Documented by: Glucagon (Glucagon For Inj 1 Mg Vial) 1 mg IM PRN PRN; Protocol PRN Reason: Hypoglycemia Glucose (Glucose Oral Gel 15 Gm Of Glucse In 37.5 Gm Tube) 15 gm PO PRN PRN; Protocol PRN Reason: Hypoglycemia Sodium Chloride (Normal Saline Iv) 1,000 mls @ 100 mls/hr IV CONT .Q10H [facility] Last Admin: 07/25/21 03:46 Dose: 100 mls/hr Documented by: Dextrose (Dextrose 5% 1,000 Ml) 1,000 mls @ 100 mls/hr IVPB PRN PRN; Protocol PRN Reason: Hypoglycemia Ceftriaxone Sodium/Dextrose (Rocephin 1 Gm/D5w 50 Ml) 1 gm in 50 mls @ 100 mls/hr IVPB Q24H [facility] Last Infusion: 07/25/21 11:48 Dose: Infused Documented by: Insulin Glargine (Insulin Glargine (*Bkc) 100 Units/Ml) 34 units SUB-Q DAILY [facility] Last Admin: 07/25/21 14:43 Dose: Not Given Documented by: Insulin Human Lispro (Insulin Human Lispro (*Bkc) 100 Units/Ml) 3 - 6 units SUB-Q TIDWM [facility]; Protocol Last Admin: 07/25/21 14:42 Dose: Not Given Documented by: Lisinopril (Lisinopril 10 Mg Tablet) 10 mg PO DAILY [facility] Last Admin: 07/25/21 10:47 Dose: Not Given Documented by: Metformin HCl (Metformin Hcl Xr 500 Mg Tab.Sr.24h) 1,000 mg BY MOUTH BID [facility] Last Admin: 07/25/21 10:47 Dose: Not Given Documented by: Ondansetron HCl (Ondansetron Inj 4 Mg/2 Ml Vial) 4 mg IV PUSH Q6H PRN PRN Reason: Nausea And Vomiting Last Admin: 07/23/21 21:00 Dose: 4 mg Documented by: Pantoprazole Sodium (Pantoprazole 40 Mg Tablet) 40 mg PO DAILY RAMESH Stop: 08/22/21 08:59 Last Admin: 07/25/21 10:47 Dose: Not Given Documented by: Saccharomyces Boulardii (Saccharomyces Boulardii 250 Mg Capsule) 2
[2021-07-25 16:25] LABS: Glucose Point of Care 99 mg/dl (65-105)
--- NOTE | 2021-07-25 16:26 | PC.NURSE ---
pt notified of possible transfer to [facility] in [facility], given fresh socks on request, ng to int suction
--- NOTE | 2021-07-25 17:03 | PC.NURSE ---
report called to fanny at [facility], pt aware and given room number, ng to int suction, green bile, call light in reach
--- NOTE | 2021-07-25 17:39 | PM.TDS ---
Transfer Discharge Sum: Prov Provider Date of admission: 07/22/21 19:36 <JOSE Lundberg - Last Filed: 07/25/21 17:52> Primary care physician: Sammy Quick MD <JOSE Lundberg - Last Filed: 07/25/21 17:52> Admitting clinician: Germán Block MD <JOSE Lundberg - Last Filed: 07/25/21 17:52> DS: Admitting Diagnosis Discharge Date 07/25/2021 <JOSE Lundberg - Last Filed: 07/25/21 17:52> Admitting Diagnosis Small Bowel Obstruction <JOSE Lundberg - Last Filed: 07/25/21 17:52> DS: Discharge Diagnosis Discharge Diagnosis (1) Partial small bowel obstruction: Code(s): K56.600 - Partial intestinal obstruction, unspecified as to cause <JOSE Lundberg - Last Filed: 07/25/21 17:52> Status: Acute <JOSE Lundberg - Last Filed: 07/25/21 17:52> Assessment and Plan: Bowel rest, Rocephin, IVF NS @ 100/h, Morphine for pain, Zofran (Pt states this works well), Pt states she has passed flatus 07/24/2021 NG to LIS draining bile, abdominal pain mostly left side, very quiet abdomen to absent only a few bowel sounds per 5 minutes of auscultation, no vomiting, passing flatus, pain controlled. 07/25/2021 Pt had 1 BM today but will still be transferred to higher level of care as he has had 3 days of: Absent bowel x 1 day then minimal active bowel x next 2 days with 1 BM on that third day. Still has abdominal pain. <JOSE Lundberg - Last Filed: 07/25/21 17:52> (2) Vomiting: Qualifiers: Nausea presence: with nausea Vomiting type: bilious vomiting Qualified Code(s): R11.14 - Bilious vomiting <JOSE Lundberg - Last Filed: 07/25/21 17:52> Code(s): R11.10 - Vomiting, unspecified <Kyle MaguireNORM corado-C - Last Filed: 07/25/21 17:52> Status: Acute <Kyle CallesNORM-C - Last Filed: 07/25/21 17:52> Assessment and Plan: Pt has not had any more vomiting since hospitalized, Zofran, NPO, discussed NG tube Pt refused, IVF as noted above, had 1 Liter bolus in ER 07/24/2021 Has not had any vomiting 07/25/2021 ... <Kyle MaguireNORM corado-C - Last Filed: 07/25/21 17:52> (3) Type 2 diabetes mellitus without complications: Qualifiers: Diabetes mellitus long-term insulin use: with termite treater use Qualified Code(s): E11.9 - Type 2 diabetes mellitus without complications; Z79.4 - jail (current) use of insulin <Kyle TorresCourtney AndrezNORM corado-C - Last Filed: 07/25/21 17:52> Code(s): E11.9 - Type 2 diabetes mellitus without complications <Kyle TorresCourtney AndrezNORM corado-C - Last Filed: 07/25/21 17:52> Status: Acute <Kyle MaguireNORM corado-C - Last Filed: 07/25/21 17:52> Assessment and Plan: ACHS glucose monitoring, continue Glargine, SSI, Metformin, Januvia, hypoglycemic protocol, make adjustments to medications as needed, will transition to diabetid diet when able 07/24/2021 Pt is currently NPO, monitoring glucose. 07/25/[address], evacuating bile. <Kyle TorresCourtney AndrezNORM corado-C - Last Filed: 07/25/21 17:52> (4) Hyperlipidemia: Code(s): E78.5 - Hyperlipidemia, unspecified <Kyle TorresCourtney Calles APN-C - Last Filed: 07/25/21 17:52> Status: Acute <Kyle MaguireNORM corado-C - Last Filed: 07/25/21 17:52> Assessment and Plan: Continue Atorvastatin <Kyle TorresCourtney Calles APN-C - Last Filed: 07/25/21 17:52> (5) Essential hypertension: Code(s): I10 - Essential (primary) hypertension <JOSE Lundberg - Last Filed: 07/25/21 17:52> Status: Acute <JOSE Lundberg - Last Filed: 07/25/21 17:52> Assessment and Plan: Continue Lisinopril <JOSE Lundberg - Last Filed: 07/25/21 17:52> (6) CAD (coronary artery disease): Code(s): I25.10 - Atherosclerotic heart disease of [place] coronary artery without angina pectoris <JOSE Lundberg - Last Filed: 07/25/21 17:52>
--- NOTE | 2021-07-25 18:04 | PC.NURSE ---
ng clamped, pt belongings sent w/ her on amb, iv intact per receiving hospital
== END 2021-07-25 18:00 | disposition short-term general hospital (02) | DRG 390 ==
LOC: CHSED 17:11 → CHS2ND 19:40
PROVIDERS: Nurse Practitioner Family; Admitting Provider Emergency Medicine; Emergency Provider Emergency Medicine; PCP Family Medicine; Visit Provider Emergency Medicine
DX: K56.600 Partial intestinal obstruction, unspecified as to cause (principal); I11.0 Hypertensive heart disease with heart failure; I25.10 Atherosclerotic heart disease of native coronary artery without angina pectoris; K76.0 Fatty (change of) liver, not elsewhere classified; E78.5 Hyperlipidemia, unspecified; E11.9 Type 2 diabetes mellitus without complications; E55.9 Vitamin D deficiency, unspecified; G25.2 Other specified forms of tremor; Z95.5 Presence of coronary angioplasty implant and graft; Z90.49 Acquired absence of other specified parts of digestive tract; Z79.4 Long term (current) use of insulin; M54.12 Radiculopathy, cervical region
CPT/HCPCS: 36415; 74018; 74177; 80048; 80053; 81001; 82948; 83605; 83690; 83735; 84484; 85025; 85027; 85055; 85730; 86140; 87077; 87086; 87088; 93005; 96361; 96374; 96375; 99285; A9270; J0696; J1650; J1815; J2270; J2405; J7030; Q9967

== ENCOUNTER 2021-08-03 15:40 | Outpatient (CLI) | payer MEDICARE, SELFPAY ==
[2021-08-03 16:46] LABS: Anion Gap 7 mmol/L (8-16); Blood Urea Nitrogen 13 mg/dL (7-17); Calcium 9.4 mg/dL (8.4-10.2); Carbon Dioxide 28 mmol/L (22-30); Chloride 104 mmol/L (98-107); Estimated Glomerular Filt Rate > 60; Glucose 99 mg/dL (65-110); Potassium 3.7 mmol/L (3.4-5.0); Sodium 139 mmol/L (137-145)
== END 2021-08-03 15:41 | disposition home or self-care (01) ==
LOC: ANHLAB 15:42
PROVIDERS: PCP Family Medicine; Visit Provider Family Medicine
DX: E87.6 Hypokalemia (principal)
CPT/HCPCS: 36415; 80048

== ENCOUNTER 2021-09-01 12:57 | Outpatient (CLI) | payer MEDICARE, SELFPAY ==
--- NOTE | ~2021-09-01 | CT_ITS ---
EXAMINATION: CT chest high resolution [facility] EXAM DATE: 09/01/2021 13:31 INDICATION: Interstitial Lung Disease. TECHNIQUE: Spiral CT of the chest without contrast. HRCT. Axial, coronal and sagittal images of the chest were reviewed. Coronal maximum intensity pixel images of chest reviewed. The dose-length prod uct (DLP) for this examination was 249.09 mGy-cm. The exposure was tailored according to patient siz e (auto mA exposure control), and iterative reconstruction (ASIR) was used as additional dose reducti on technique. Comparison is made to prior examination from 12/17/2020. FINDINGS: Left basilar granuloma. Mild emphysema. There is mild peripheral basilar predominant inter lobular septal thickening, mild chronic interstitial lung disease. Similar appearance on prior study. Aberrant right subclavian artery, a normal congenital variant There are no pleural or pericardial e ffusions. Tracheobronchial tree is patent. There is no mediastinal, hilar or axillary lymphadenop athy. There is no pneumothorax. Heart normal in size. There is mild coronary arterial calcifica tion, arterial sclerosis. There are cholecystectomy clips. There is thoracic spondylosis without o steoblastic or osteolytic lesions identified. IMPRESSION: Mild chronic interstitial lung disease unchanged. Reviewed, dictated and finalized at location [facility]. [facility]
== END 2021-09-01 12:58 | disposition home or self-care (01) ==
LOC: ANHIMG 13:00
PROVIDERS: PCP Family Medicine; Visit Provider Nurse Practitioner
DX: J84.9 Interstitial pulmonary disease, unspecified (principal)
CPT/HCPCS: 71250

== ENCOUNTER 2022-05-24 09:05 | Outpatient (CLI) | payer MEDICARE, SELFPAY ==
--- NOTE | ~2022-05-24 | US_ITS ---
EXAMINATION: US thyroid DATE: 05/24/2022 09:34 INDICATION: Hypothyroidism TECHNIQUE: Multiple ultrasound images of the thyroid were obtained. COMPARISON: 07/26/2006 FINDINGS: The right thyroid lobe measures 4.3 x 2.0 x 2.2 cm. The left thyroid lobe measures 2.2 x 0.8 x 0.6 c m. 3.3 cm wider than tall solid isoechoic right thyroid nodule with smooth margins and without echog enic foci (TI-RADS 3, mildly suspicious , FNA if >=2.5 cm, annual followup is >=1.5 cm). Smaller 1.2 cm wider than tall solid hypoechoic nodule with ill-defined margins at the right side of the thyroid isthmus also without echogenic foci (TI-RADS 4, moderately suspicious , FNA if >=1.5 cm, annual follo wup is >=1 cm). IMPRESSION: 1. Thyroid atrophy with the majority of the right thyroid lobe occupied by 3.3 cm TI RADS 3 nodule fo r which ultrasound-guided biopsy would be recommended. 2. 1.2 cm TI RADS 4 nodule at the right thyroid isthmus which remains below size criteria for biopsy which annual ultrasound follow-up would be recommended. Reviewed, dictated and finalized at location A. 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 Thyroid atrophy with the majority of the right thyroid lobe occupied by 3.3 cm TI RADS 3 nodule for which ultrasound-guided biopsy would be recommended. 2. 1.2 cm TI RADS 4 nodule at the right thyroid isthmus which remains below siz e criteria for biopsy which annual ultrasound follow-up would be recommended.
== END 2022-05-24 09:06 | disposition home or self-care (01) ==
PROVIDERS: PCP Emergency Medicine; Visit Provider Emergency Medicine
DX: E03.9 Hypothyroidism, unspecified (principal)
CPT/HCPCS: 76536

== ENCOUNTER → 2022-06-13 13:22 | Outpatient (CLI) | payer MEDICARE, SELFPAY ==
--- NOTE | ~2022-06-13 | DEXA_ITS ---
Bone Density Report Name: HUI ELIAS Age: 72 Sex: Female Ethnicity: White Date of : 1950 Indication: postmenopausal; screening for osteoporosis; height loss; Referring Provider: ROMAN CROW Study: Bone densitometry was performed. Exam Date: June 13, 2022 Accession number: [id number] Bone Density: Region BMD T-score Z-score Classification AP Spine (L1-L4) 1.238 1.7 4.0 Normal Femoral Neck (Left) 0.748 -0.9 1.1 Normal Total Hip (Left) 0.913 -0.2 1.5 Normal Femoral Neck (Right) 0.741 -1.0 1.0 Normal Total Hip (Right) 0.877 -0.5 1.2 Normal Total Hip Mean 0.895 -0.4 1.4 Normal World Health Organization criteria for BMD impression classify patients as: Normal (T-score at or above -1.0), Osteopenia (T-score between -1.0 and -2.5), or Osteoporosis (T-score at or below -2.5). 10-year Fracture Risk: FRAX not reported because: All T-scores for Spine Total, Hip Total, Femoral Neck at or above -1.0 Clinical Information Provided by Patient: Patient maximum height was 64 Menopause Age: 47 Drinks caffeinated beverages Onset of menses at age 9 Number of children 3 Impression: The patient has normal bone mass. Discussion: BONE DENSITY IS ABOVE THE MINIMUM DESIRABLE LEVEL AT ALL SKELETAL SITES TESTED. This patient?s bone mineral density is above the minimum desirable level (T-score -1.0 or better) at all sites measured. The patient should follow a healthful lifestyle (good nutrition with adequate calcium and vitamin D, and appropriate weight-bearing exercise). Follow-Up: Consider repeating this study in 5 years or sooner if there is some new clinical indication. Reported by: PRINCE on 06/13/2022 1:49:00 PM. Reviewed, dictated and finalized at location ACourtney [facility]
--- NOTE | ~2022-06-13 | MM_ITS ---
EXAMINATION: MM screening guru BI w bronson HISTORY: Screening TECHNIQUE: Craniocaudal and mediolateral oblique 3-D tomosynthesis images were obtained and synthetic 2-D images were generated. CAD analysis was submitted and interpreted. COMPARISON: Comparison to multiple prior studies sequentially, with oldest reviewed study dated 12/30. BREAST PARENCHYMAL COMPOSITION: There are scattered areas of fibroglandular density. FINDINGS: There is no evidence of suspicious mass, calcification, or architectural distortion to sugg est malignancy in either breast. There has been no suspicious interval change. IMPRESSION: 1. No mammographic evidence of malignancy. 2. Recommend routine screening mammography in one year. BI-RADS Category 1: Negative Reviewed, dictated and finalized at location B. MARKER
== END ==
PROVIDERS: PCP Emergency Medicine; Visit Provider Emergency Medicine
DX: Z12.31 Encounter for screening mammogram for malignant neoplasm of breast (principal); Z78.0 Asymptomatic menopausal state
CPT/HCPCS: 77063; 77067; 77080

== ENCOUNTER 2022-07-07 12:15 | Outpatient (CLI) | payer MEDICARE, SELFPAY ==
--- NOTE | ~2022-07-07 | US_ITS ---
EXAMINATION: US FNA w image guidance DATE: 07/07/2022 13:54 INDICATION: Right thyroid nodule. Abnormal findings on diagnostic imaging. TECHNIQUE: The procedure and its benefits and risks were discussed with the patient. Risks specifically discusse d included bleeding. The patient verbalized understanding of the risks and agreed to proceed. The nec k was prepped and draped in the usual sterile manner. 1% lidocaine was used for local anesthesia. 6 passes were made with a 25G needle into the lesion under ultrasound guidance. There were no immedia te complications. FINDINGS: Grayscale ultrasound images demonstrate needles advanced into a 3.5 cm nodule in right thyroid lobe f or biopsy. IMPRESSION: 1. Ultrasound-guided fine needle aspiration of a right thyroid nodule. Reviewed, dictated and finalized at location A. AND EYE MACHINE OPERATOR
== END 2022-07-07 12:16 | disposition home or self-care (01) ==
PROVIDERS: PCP Emergency Medicine; Visit Provider Emergency Medicine
DX: R93.89 Abnormal findings on diagnostic imaging of other specified body structures (principal)
CPT/HCPCS: 10005; 88173; 88305; 88307

== ENCOUNTER 2023-05-29 01:39 | Day surgery (SDC) | payer MEDICARE, SELFPAY ==
[2023-05-26 10:33] VITALS: BMI 34.0
[2023-05-29] VITALS (17 sets, daily range): BP systolic 126–162; BP diastolic 56–73; PULSE 54–80; RESP 14–18; TEMP 36.3; O2SAT 94–97; BMI 32.9
[2023-05-29 07:32] LABS: Basophils Absolute Auto 0.1 K/mm3 (0.0-0.1); Basophils Percent Auto 0.8 % (0.2-1.2); Eosinophils Absolute Auto 0.2 K/mm3 (0-0.3); Eosinophils Percent Auto 2.8 % (0-4.4); Hematocrit 40.9 % (37.0-47.0); Hemoglobin 12.6 g/dL (12.0-15.0); Immature Granulocyte Absolute 0.04 K/mm3 (0.00-0.031); Immature Granulocyte Percent A 0.5 % (0-0.5); Lymphocytes Percent Auto 27.7 % (18.3-44.2); Mean Corpuscular HGB Conc 30.8 g/dl (32-36); Mean Corpuscular Hemoglobin 26.9 pg (26-34); Mean Corpuscular Volume 87.4 fl (80-100); Mean Platelet Volume 12.4 fl (7.4-10.4); Monocytes Absolute Auto 0.6 K/mm3 (0.1-0.6); Monocytes Percent Auto 6.4 % (2.6-8.5); Neutrophils Absolute Auto 5.4 K/mm3 (1.3-6.7); Neutrophils Percent Auto 61.8 % (45.5-73.1); Platelet Count Result 313 k/mm3 (150-375); Red Blood Count 4.68 M/mm3 (4.2-5.4); Red Cell Distribution Width 15.9 % (11.5-14.5); White Blood Count 8.7 K/mm3 (4.5-10.0)
[2023-05-29 07:40] LABS: Anion Gap 10 mmol/L (8-16); Blood Urea Nitrogen 14 mg/dL (7-17); Calcium 9.4 mg/dL (8.4-10.2); Carbon Dioxide 28 mmol/L (22-30); Chloride 102 mmol/L (98-107); Estimated CRCL calculation 51 ml/min; Estimated Glomerular Filt Rate > 60; Glucose 150 mg/dL (65-110); Potassium 3.9 mmol/L (3.4-5.0); Sodium 140 mmol/L (137-145)
--- NOTE | 2023-05-29 09:05 | WPDMODSED ---
Moderate Sedation Note-Pt Data Patient Data Diagnosis: Coronary artery disease with previous right coronary PCI intermittent nonexertional chest pain abnormal stress test Present Complaint: intermittent chest pain Procedure to be performed/Plan: left heart catheterization Allergies Allergy/AdvReac Type Severity Reaction Status Date / Time erythromycin base Allergy Mild rash Verified 05/29/23 07:13 nitrofurantoin AdvReac Intermediate Nausea Verified 05/29/23 07:13 [From Macrobid] Home Medications Medication Instructions Recorded Confirmed Type aspirin 81 mg chewable tablet 81 mg PO DAILY 05/27/19 05/26/23 History acidophilus 100 million 1 cap PO DAILY 05/08/20 05/26/23 History cell-pectin, citrus 10 mg capsule (Acidophilus Probiotic) albuterol sulfate 90 mcg/actuation See Rx Instructions .Route .COMPLEX 01/04/22 05/26/23 History aerosol inhaler insulin degludec 100 unit/mL (3 See Rx Instructions .Route 08/04/22 05/26/23 Rx mL) subcutaneous pen (Tresiba .COMPLEX #45 mL FlexTouch U-100 insulin) sitagliptin phosphate 100 mg 100 mg PO DAILY #90 tabs 12/12/22 05/26/23 Rx tablet (Januvia) levothyroxine 50 mcg tablet 50 mcg PO DAILY #90 tabs 04/10/23 05/26/23 Rx pen needle, diabetic 32 gauge x #100 ea 04/21/23 Rx 5/32 (Easy Comfort Pen [place]) atorvastatin 10 mg tablet 10 mg PO DAILY 05/26/23 05/26/23 History esomeprazole magnesium 40 mg 40 mg PO DAILY 05/26/23 05/26/23 History capsule,delayed release ketorolac 0.5 % eye drops 1 drp LEFT EYE TID 05/26/23 05/26/23 History lisinopril 10 mg tablet 10 mg PO DAILY 05/26/23 05/26/23 History metformin 500 mg tablet,extended 1,000 mg PO BID 05/26/23 05/26/23 History release 24 hr naproxen sodium 220 mg capsule 220 mg PO DAILY PRN Arthiritis 05/26/23 05/26/23 History (Aleve) nitroglycerin 0.4 mg sublingual 0.4 mg sublingual Q5M PRN Chest 05/26/23 05/26/23 History tablet Pain prednisolone acetate 1 % eye 1 drp LEFT EYE TID 05/26/23 05/26/23 History drops,suspension Current Medications: Active Medications Sodium Chloride (Normal Saline Iv) 500 mls @ 100 mls/hr IV CONT .Q5H RAMESH Sedation/Anesthesia: No previous sedation/anesthesia problems (including family history). [facility] Past Medical History Medical History Adenomatous colon polyp CAD (coronary artery disease) Cervical radiculopathy Essential hypertension Fatty liver Hyperlipidemia Hypertensive heart disease without CHF Intention tremor Left hip pain Long-term insulin use Metabolic syndrome Numbness and tingling of left upper extremity Type 2 diabetes mellitus with hyperglycemia Type 2 diabetes mellitus without complications Vitamin D deficiency, unspecified Surgical History Surgical History History of coronary artery stent placement S/P arterial stent Family History Family History Mother Family history of kidney disease Family history of coronary artery disease Hypertension Father Family history of diabetes mellitus in first degree relative Family history of coronary artery disease Diabetes mellitus Sibling Family history of coronary artery disease Other Family history of cardiovascular disease Social History Social History Social History: Smoking status: Never smoker Second hand tobacco smoke exposure: No Alcohol intake: never Alcohol use details: special occasions Substance use: never Substance use type: does not use Lack of Transportation: No Lack of Food: Never True Current Housing: I Have Housing Concerned About Future Housing: No Difficulty Paying Gas/Electric Bills: No Difficulty Paying for Meds: No Currently Unemployed: No Education: High School Diploma/GED Diffic
--- NOTE | 2023-05-29 09:06 | WPDCARDPROC ---
Cardiac Cath Procedure Note Date of procedure:: 05/29/23 Performing physician:: Germán Garcia MD Indication:: this is a 73-year-old woman known to have coronary disease. In the remote past she underwent PCI with drug-eluting stent to the mid right coronary artery and has done well. She is now reporting intermittent episodes of nonexertional chest pain. For evaluation of this an exercise stress test was performed in the office which demonstrated exertional ST segment depression but no symptoms and a good functional capacity Brief clinical history:: as above Procedure Procedure performed:: left ventriculogram coronary angiogram Sedation/Medication given:: fentanyl 50 mg Versed 2 mg case start time 8:45 a.m. case end time 8:58 a.m. sedation provided by Justyna Galicia RN, trained observer Access site:: right femoral artery Estimated blood loss:: 20 cc Procedure note:: patient was brought to the cardiac catheterization lab in the postabsorptive state where the right femoral triangle was prepared and draped in the usual fashion. Anesthesia was provided with 1% lidocaine infiltrated locally. Using the modified Seldinger technique a 5 Swazi sheath was placed into the right femoral artery. After this left heart catheterization was carried out. I used a 5 Swazi angled pigtail catheter to measure left ventricular and central aortic hemodynamics and to inject the left ventriculogram in the MORENO projection. Following this the left coronary artery was engaged and injected using a 5 Swazi FL4 catheter. The right coronary was engaged and injected using a standard 5 Swazi JR4 catheter. Cineangiograms were then reviewed and the case was terminated. The I performed angiogram of the femoral artery through the sheath and determined that we would remove the sheath with direct manual compression. The procedure was well tolerated and uncomplicated. There was no evidence of groin hematoma when she left the cardiac catheterization lab. Findings:: Hemodynamics: Central aortic pressure is 146 over 66 left ventricle 150/2 end-diastolic pressure 18 there is no gradient on pullback across the aortic valve. Left ventricle: The LV is normal in size. The contractility appears to be adequate, in the low normal range with an ejection fraction of about 50% by visual estimation. No significant regional wall motion abnormality the left main coronary artery is widely patent the left anterior descending is a moderate to large vessel extending down to the apex. The LAD and its branches are free of significant stenosis. There is mild calcification noted in the proximal aspect of the LAD. The circumflex is a moderate caliber artery giving rise to 1 very large marginal branch and a posterior branch. The circumflex has minimal luminal irregularities distally but otherwise no significant disease is identified the right coronary artery is large in caliber and dominant to the posterior circulation. The right coronary artery is free of significant lesions. There is minimal plaquing in the proximal right coronary representing no more than about 20-30% stenosis. This is proximal to the previously deployed stent in the 2nd portion of the artery which remains widely patent with no loss of lumen. Conclusion:: 1. Right coronary dominant circulation with previous stenting of the large dominant right coronary artery. No significant coronary lesions at this time as detailed above 2. adequate left ventricular systolic function with ejection fraction in the low-normal range 3. false-positive stress test Germán Garcia MD [facility] Assessment and Plan Assessment and plan (1) CAD (coronary artery disease): Code(s): I25.10 - Atherosclerotic heart disease of ewiiaapaayp coronary artery without angina pectoris Status: Acute
[2023-05-29] MEDS: ACETAMINOPHEN 325 MG TABLET 650 MG PO (11:07)
[2023-05-29] MEDS: ONDANSETRON INJ 4 MG/2 ML VIAL (12:00)
[2023-05-29] MEDS: ONDANSETRON INJ 4 MG/2 ML VIAL IV PUSH (12:02)
[2023-05-29] MEDS: SODIUM CHLORIDE 0.9% IV 500 ML 100 ML IV CONT (12:18)
== END 2023-05-29 15:05 | disposition home or self-care (01) ==
PROVIDERS: PCP Emergency Medicine; Visit Provider Specialist
PROC: 4A023N7 Measurement of Cardiac Sampling and Pressure, Left Heart, Percutaneous Approach (ICD-10-PCS; CPT 93452; principal; 2023-05-29 08:30)
DX: I25.10 Atherosclerotic heart disease of native coronary artery without angina pectoris (principal); I10 Essential (primary) hypertension; E78.5 Hyperlipidemia, unspecified; G25.2 Other specified forms of tremor; E11.65 Type 2 diabetes mellitus with hyperglycemia; E55.9 Vitamin D deficiency, unspecified; Z79.82 Long term (current) use of aspirin; Z79.51 Long term (current) use of inhaled steroids; Z79.4 Long term (current) use of insulin; Z79.84 Long term (current) use of oral hypoglycemic drugs; Z79.1 Long term (current) use of non-steroidal anti-inflammatories (NSAID); Z95.5 Presence of coronary angioplasty implant and graft; Z86.010 Personal history of colon polyps; Z82.49 Family history of ischemic heart disease and other diseases of the circulatory system
CPT/HCPCS: 36415; 80048; 85025; 93458; A9270; C1887; C1894; J1644; J2250; J2405; J3010; J7030; J7040

== ENCOUNTER 2023-09-18 15:25 | Outpatient (CLI) | payer MEDICARE, SELFPAY ==
--- NOTE | ~2023-09-18 | CT_ITS ---
EXAMINATION: CT brain wo con DATE: 09/18/2023 15:57 INDICATION: Hand tremors, increasing over the past year TECHNIQUE: Computed tomography (CT) of the head was performed without intravenous contrast. The mA wa s adjusted according to patient size. Iterative reconstruction technique was employed. Exam dose: 60 5.33 mGy-cm total exam DLP. COMPARISON: 07/29/2005 MRI brain/brainstem 06/03/2004 CT brain FINDINGS: Bilateral carotid siphon internal carotid artery prominent calcifications. There is nonspecific diminished attenuation of the cerebral white matter, likely due to chronic small vessel ischemic changes. No intracranial mass lesion or hemorrhage or cerebrovascular accident, midline shift or mass effect o r subdural or epidural hematoma is detected. No skull fracture or bone destruction. The mastoid air cells and included paranasal sinuses are nick lly developed and aerated. IMPRESSION: Cerebral atherosclerosis and chronic small vessel ischemic changes of the cerebral white matter No acute intracranial finding Reviewed, dictated and finalized at Location A. Reviewed, dictated and finalized at location B.
== END 2023-09-18 15:26 | disposition home or self-care (01) ==
PROVIDERS: PCP Emergency Medicine; Visit Provider Emergency Medicine
DX: R25.1 Tremor, unspecified (principal); I67.2 Cerebral atherosclerosis
CPT/HCPCS: 70450

== ENCOUNTER 2024-07-24 08:46 | Outpatient (CLI) | payer MEDICARE, SELFPAY ==
--- NOTE | ~2024-07-24 | MM_ITS ---
EXAMINATION: MM screening guru BI w bronson HISTORY: Screening TECHNIQUE: Craniocaudal and mediolateral oblique 3-D tomosynthesis images were obtained and synthetic 2-D images were generated. CAD analysis was submitted and interpreted. COMPARISON: Comparison to multiple prior studies sequentially, with oldest reviewed study dated 12/2015. BREAST PARENCHYMAL COMPOSITION: Not dense: There are scattered areas of fibroglandular density. FINDINGS: There is no evidence of suspicious mass, calcification, or architectural distortion to sugg est malignancy in either breast. There has been no suspicious interval change. IMPRESSION: 1. No mammographic evidence of malignancy. 2. Recommend routine screening mammography in one year. BI-RADS Category 1: Negative Reviewed, dictated and finalized at location A. AND BURR OPERATOR
--- NOTE | ~2024-07-24 | DEXA_ITS ---
Bone Density Report Name: HUI ELIAS Age: 74 Sex: Female Ethnicity: White Date of : 1950 Indication: postmenopausal; screening for osteoporosis; height loss; Referring Provider: ROMAN CROW Study: Bone densitometry was performed. Exam Date: July 24, 2024 Accession number: [id number] Bone Density: Region BMD T-score Z-score Classification AP Spine(L1-L4) 1.196 1.4 3.8 Normal Femoral Neck (Left) 0.719 -1.2 0.9 Osteopenia Total Hip (Left) 0.906 -0.3 1.5 Normal Femoral Neck (Right) 0.752 -0.9 1.2 Normal Total Hip (Right) 0.892 -0.4 1.4 Normal Total Hip Mean 0.899 -0.4 1.5 Normal World Health Organization criteria for BMD impression classify patients as: Normal (T-score at or above -1.0), Osteopenia (T-score between -1.0 and -2.5), or Osteoporosis (T-score at or below -2.5). 10-year Fracture Risk(1): Major Osteoporotic Fracture 9.8% Hip Fracture 1.6% Reported Risk Factors: [place] (), Neck BMD=0.719, BMI=33.7 (1) FRAX(R) Version 3.08. Fracture probability calculated for an untreated patient. Fracture probability may be lower if the patient has received treatment. Previous Exams: Region Exam Age BMD T-score BMD Change BMD Change Date g/cm2 vs Baseline vs Previous AP Spine (L1-L4) 07/24/2024 74 1.196 1.4 -0.052 (-4.2%) 0.007 (0.6%) 01/17/2017 67 1.188 1.3 -0.060 (-4.8%) -0.060 (-4.8%) 12/30/2014 64 1.248 1.8 Total Hip(Left) 07/24/2024 74 0.906 -0.3 -0.033 (-3.5%) -0.054 (-5.7%) 01/17/2017 67 0.961 0.2 0.021 (2.3%) 0.021 (2.3%) 12/30/2014 64 0.939 0.0 Total Hip(Right) 07/24/2024 74 0.892 -0.4 0.004 (0.4%)# -0.003 (-0.3%) 01/17/2017 67 0.895 -0.4 0.007 (0.7%) 0.007 (0.7%) 12/30/2014 64 0.888 -0.4 *Denotes significance at 95% confidence level, LSC for AP Spine = 0.022 g/cm2, LSC for Total Hip = 0.027 g/cm2 # Denotes dissimilar scan types or analysis methods Clinical Information Provided by Patient: Patient maximum height was 64 Menopause Age: 55 No regular weight bearing exercise Drinks caffeinated beverages Onset of menses at age 10 Number of children 3 Impression: The patient has low bone mass, based on the Left Femoral Neck T-score. The patient has an estimated ten-year risk of hip fracture of 1.6% and an estimated ten-year risk of major fracture of 9.8%, based on the WHO FRAX algorithm. The BMD for the Total Hip(Left) decreased, changing by -5.7% since the last DXA exam. Discussion: BONE DENSITY IS LOW AT ONE OR MORE SKELETAL SITES. This patient's lowest T-score is low at one or more skeletal sites. It meets the World Health Organization's (WHO) criteria for ?low bone mass? (T-score between -1.0 and -2.5). The patient's 10-year risk of fracture as calculated by FRAX is less than the threshold where pharmacological therapy is recommended by the National Osteoporosis Foundation (NOF). However, all treatment decisions require clinical judgment and consideration of individual patient factors, including patient preferences, comorbidities, previous drug use, risk factors not captured in the FRAX model (e.g., frailty, falls, vitamin D deficiency, increased bone turnover, interval significant decline in bone density) and possible under or overestimation of fracture risk by FRAX. The patient should follow a healthful lifestyle (good nutrition with adequate calcium and vitamin D, and appropriate weight-bearing exercise). Follow-Up: Consider repeating this study in 2 years to reassess this patient's status, or sooner if there is some new clinical indication. Reported by: PRINCE on 07/24/2024 9:23:00 AM. Reviewed, dictated and finalized at location ACourtney ALY
== END 2024-07-24 08:47 | disposition home or self-care (01) ==
LOC: ANHIMG 08:47
PROVIDERS: PCP Emergency Medicine; Visit Provider Emergency Medicine
DX: Z12.31 Encounter for screening mammogram for malignant neoplasm of breast (principal); Z78.0 Asymptomatic menopausal state; E55.9 Vitamin D deficiency, unspecified; M85.852 Other specified disorders of bone density and structure, left thigh
CPT/HCPCS: 77063; 77067; 77080

== ENCOUNTER 2024-09-11 14:51 | Outpatient (CLI) | payer MEDICARE, SELFPAY ==
--- NOTE | ~2024-09-11 | XR_ITS ---
[id number] Ordering provider: Germán Block MD History: . M25.561 - Pain in right knee x 1 week . Comparison: None. FINDINGS: BONES: No acute fracture or dislocation. JOINT SPACES: Slight narrowing of the medial compartment. SOFT TISSUES: Ossification of the insertion of the quadriceps and patellar tendons and the patella. IMPRESSION: No acute osseous abnormality right knee. Mild osteoarthritic changes. Reviewed, dictated and finalized at location A.
--- OUTSIDE RECORDS SUMMARY | 2024-09-11 16:53 | XMS_ITS | Encounter Summary ---
Author Organization [facility] Address [address] [place] [address] Phone Care Team Providers Care Car Shifter Name Role Phone Sammy Quick MD Primary Care Provider Germán Block MD Primary Care Provide r Sammy Quick MD Unavailable [phone] Sammy Quick MD Primary Care Provider Germán Block MD Primary Care Provide r Encounter Details Date Type Department Care Team (Late st Contact Info) Description 03/05/2021 Orders Only [facility] Scanning, Provider Social History Tobacco Use Types Packs/Day Years Used Date Smoking Tobacco: Never Smokeless Tobacco: Never Alcohol Use Standard Drinks/Week Comments No 0 (1 standard drink = 0.6 oz pur e alcohol) Comments Unknown Sex and Gender Information Value Date Recorded Sex Assigned at Not on file 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 Gender Identity Not on file Sexual Orientation Not on file documented as of this encounter Plan of Treatment Not on file documented as of this encounter Procedures Procedure Name Priority Date/Time Associated Diagnosis Comments SCAN - LABS 03/05/2021 documented in this encounter Results * SCAN - LABS (03/05/2021) us Provider Scanning Final Result documented in this encounter Visit Diagnoses Not on filedocumented in this encounter Care Teams Car Shifter Relationship Specialty Start Date End Date Sammy Quick MD [address] [address] PCP - General 09/30/16 02/17/22 Germán Block MD [address] [place] [address] PCP - General Emergency Medicine 02/18/22 03/28/22 Sammy Quick MD [address] [facility] [address] [address] PCP - General Family Medicine 03/29/22 03/29/22 Germán Block MD [address] [place] [address] PCP - General Emergency Medicine 03/30/22 Sammy Quick MD [address] [facility] [address] [address] Referring Physician Family Medicine 03/29/22 07/31/22 documented as of this encounter
--- OUTSIDE RECORDS SUMMARY | 2024-09-11 16:53 | XMS_ITS | Encounter Summary ---
Author Organization [facility] Address [address] [facility] [address] [place] [address] Care Team Providers Care Cement Storage Worker Name Role Phone Sammy Quick MD Primary Care Provider Germán Block MD Primary Care Provide r Sammy Quick MD Unavailable [phone] Sammy Quick MD Primary Care Provider Germán Block MD Primary Care Provide r Encounter Details Date Type Department Care Team (Late st Contact Info) Description 10/04/2016 Orders Only [facility] ProviderAda MD [address] [place] [address] Social History Tobacco Use Types Packs/Day Years Used Date Smoking Tobacco: Never Assessed Comments Unknown Sex and Gender Information Value Date Recorded Sex Assigned at Not on file 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 Historical Provider [facility] CARDIAC SERVICES PROCE DURES Final Result documented in this encounter Visit Diagnoses Not on filedocumented in this encounter Care Teams Cement Storage Worker Relationship Specialty Start Date End Date Sammy Quick MD [address] [facility] [address] [place] [address] PCP - General 09/30/16 02/17/22 Germán Block MD [address] [place] [address] PCP - General Emergency Medicine 02/18/22 03/28/22 Sammy Quick MD [address] [facility] [address] [address] PCP - General Family Medicine 03/29/22 03/29/22 Germán Block MD [address] [place] [address] PCP - General Emergency Medicine 03/30/22 Sammy Quick MD [address] [facility] [address] [address] Referring Physician Family Medicine 03/29/22 07/31/22 documented as of this encounter
--- OUTSIDE RECORDS SUMMARY | 2024-09-11 16:53 | XMS_ITS | Clinical Summary ---
Author Organization [facility] Address Formerly [facility], [facility] [place] [address] Care Team Providers Care Poke In Name Role Phone Sammy Quick MD Primary Care Provider [phone] Allergies Active Allergy Reactions Criticality Noted Date Comments Erythromycin Rash Medium 07/25/2021 Medications aspirin 81 MG chewable tablet Chew 81 mg by mouth daily. Active esomeprazole 40 MG capsule Take 40 mg by mouth every morning before breakfast. Active lisinopril 10 MG tablet Take 10 mg by mouth daily. Active Lactobacillus Acid-Pectin (ACIDOPHILUS/CI TRUS PECTIN) Tab Take 1 tablet by mouth daily. Active metFORMIN 1000 MG tablet Take 1,000 mg by mouth 2 (two) times daily with meals. Active atorvastatin 10 MG tablet Take 10 mg by mouth daily. Active Insulin Degludec (TRESIBA) 100 UNIT/ML Solution Inject 34 Units/day into the skin nightly at bedtime. Active SITagliptin 100 MG tablet Take 100 mg by mouth daily. Active Active Problems Problem Noted Date Diagnosed Date Small bowel obstruction ([facility]/HCC) 2021 Family History Medical History Relation Comments Coronary artery disease Father Diabetes Father Coronary artery disease Mother Hypertension Mother ckd Mother Relation Status Comments Father Mother Social History Tobacco Use Types Packs/Day Years Used Date Smoking Tobacco: Never Smokeless Tobacco: Never Alcohol Use Standard Drinks/Week Comments Never 0 (1 standard drink = 0.6 oz pur e alcohol) Comments No Sex and Gender Information Value Date Recorded Sex Assigned at Not on file Legal Sex Female 7:57 PM CDT Gender Identity Not on file Sexual Orientation Not on file Last Filed Vital Signs Vital Sign Reading Time Taken Comments Blood Pressure 144/62 07/28/2021 4:57 AM DIRECTOR ON AIR Pulse 72 07/28/2021 4:57 AM DIRECTOR ON AIR Temperature 36.6 C (97.9 F) 07/28/2021 4:57 AM DIRECTOR ON AIR Respiratory Rate 18 07/28/2021 4:57 AM DIRECTOR ON AIR Oxygen Saturation 98% 07/28/2021 4:57 AM DIRECTOR ON AIR Inhaled Oxygen Concentration - - Weight 90.4 kg (199 lb 4.7 oz) 07/28/2021 4:57 A M DIRECTOR ON AIR Height 162.6 cm (5' 4 ) 07/25/2021 7:56 PM DIRECTOR ON AIR Body Mass Index 34.21 07/25/2021 7:56 PM DIRECTOR ON AIR Plan of Treatment Health Maintenance Due Date Last Done Comments Colorectal Cancer Screening Colonoscopy (10 Years) 1950 Hepatitis C 1967 DTaP, Tdap and Td Vaccines (1 - Tdap) 01/11/1968 Annual Medicare Wellness Visit 2014 Dexa Scan (General) 2014 Pneumococcal Vaccine: 65+ Years (1 of 1 - PCV) 2014 Zoster Vaccines (2 of 3) 09/03/2015 07/09/2015 RSV Immunization or 60+ Years (1 - 1-dose 75+ series) 01/11/2024 COVID-19 Vaccine ( - season) 2024 07/02/2021, 09/28/2020, 09/07/2020 Influenza Adult (#1) 2024 04/17/2020, 04/21/2019, 04/14/2018, Additional history exists Meningococcal B Vaccine Aged Out No l onger eligible based on patient's age to complete this topic Meningococcal Vaccine Aged Out No marina donna eligible based on patient's age to complete this topic RSV Immunizations Under 20 Months Aged Out No longer eligible based on patient's age to complete this topic Goals Goal Patient Goal Type Associated Problems Recent Progress Patient-Stated? Author Patient will return to prior living situation and remain independent in ADLs upon discharge from hospital General No Virginia Gann, RN Insurance AETNA Advance Directives * Full Code (Latest Code Status on File) Date Activated Date Inactivated Comments 07/25/2021 7:46 PM 07/28/2021 5:26 PM Care Teams Poke In Relationship Specialty Start Date End Date Sammy Quick MD [address] [facility] [address] [place] [address] PCP - General FAMILY PRACTICE 07/26/21
--- OUTSIDE RECORDS SUMMARY | 2024-09-11 16:53 | XMS_ITS | Referral Summary ---
Author Organization [facility] [address] Address [address] [place] [address] Care Team Providers Care Structures Mechanic Name Role Phone Germán Block MD Primary Care Provide r Allergies Active Allergy Reactions Criticality Noted Date Comments Erythromycin Rash Medium Erythromycin Base Rash Medium 02/18/2022 Medications Lactobacillus acidophilus (PROBIOTIC) 10 billion cell capsule take 1 by Oral route once 0 0 7 Active lisinopril (PRINIVIL,ZESTRI L) 10 mg tablet take 1 tablet by oral route every day 0 [address] (NexIUM) 40 mg capsule take 1 capsule by oral route every day 0 0 7 Active aspirin (ASPIRIN LOW DOSE) 81 mg tablet take 1 tablet by oral route every day 0 0 7 Active metFORMIN XR (GLUCOPHAGE XR) 500 mg 24 hr tablet take 2 by Oral route 2 times every day 0 0 7 Active NOVOFINE PLUS 32 gauge x 1/6 needle USE ONE TIP D 0 7 Active nitroglycerin (NITROSTAT) 0.4 mg SL tablet DISSOLVE ONE TABLET UNDER THE TONGUE EVERY 5 MINUTES NEEDED FOR CHEST PAIN. 25 tablet 3 7 Active Additional Information Patient not taking.Reported on 07/20/2023 Tresiba FlexTouch U-100 100 unit/mL (3 mL) insulin pen INJECT 30 UNITS UNDER THE SKIN QPM 0 Active SITagliptin (JANUVIA) 100 mg tabletIndication s:type 2 diabetes mellitus Take 1 tablet (100 mg total) by mouth daily Active albuterol HFA (PROVENTIL HFA,VENTOLIN HFA,PROAIR HFA) 90 mcg/actuation inhaler INHALE 2 PUFFS BY MOUTH EVERY 4 HOURS NEEDED 1 Active cetirizine (ZyrTEC) 10 mg tablet Take 1 tablet every day by oral route as needed. Active naproxen (ALEVE) 220 mg tablet Take 1 tablet every 12 hours by oral route as needed. Active TRUEplus Pen Needle 32 gauge x 5/32 needle as directed 2 Active atorvastatin (LIPITOR) 10 mg tabletIndication s:Coronary artery disease involving [place] coronary artery of [place] heart without angina pectoris Take 2 tablets (20 mg total) by mouth daily 0 2 Active levothyroxine (SYNTHROID) 50 mcg tablet Take 1 tablet (50 mcg total) by mouth daily 3 Active Active Problems Problem Noted Date Diagnosed Date Essential tremor 03/30/2022 Assessment & Plan (03/30/2022 12:08 PM CDT): She had a predominantly action and postural tremor right worse than left with no rest tremor today though she did have a history of resting tremor and micrographia. Given the findings today with no rigidity and little to no bradykinesia on exam the most likely diagnosis was essential tremor. She had some mild posturing when walking so dystonia trmeor is possible, but we did not see a great deal of dystonia even when she shook. She had a high TPO ab and thyroid disease can cause tremor. We will check TSH and T4 and she may need to follow up with endocrinology or rheumatology (who she saw before). I would also check a ceruloplasmin and heavy metal screen. We can consider a brain MRI should her trmeor become atypical in nature. She did not eish to treat the symptoms right now and I agreed. In the future we could consider primidone.Propanolol is a bad option given her lng disease. Topiramate is a bad option given her high calcium. Gabapentin is an ok option. Intermittent benzo treatment is also an option. Coronary artery disease invo lving steb[place] coronary artery of st[place] heart without angina pectoris 03/28/2017 S/P coronary artery stent placement 03/28/2017 GERD (gastroesophageal reflux disease) 7 Pulmonary fibrosis Social History Tobacco Use Types Packs/Day Years Used Date Smoking Tobacco: Never Smokeless Tobacco: Never Tobacco Cessation:Counseling Given: Not Answered Alcohol Use Standard Drinks/Week Comments No 0 (1 standard drink = 0.6 oz pur e alcohol) Personal Safety Answer Date Recorded Getting School Help Needed Not on file 07/06 Comments Unknown Sex and Gender Information Value Date Recorded Sex Assigned at Not on file Legal Sex Female 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 Gender Identity Not on file Sexual Orientation Not on file Last Filed Vital Signs Vital Sign Reading Time Taken Comments Blood Pressure 124/62 01/18/2024 9:56 AM CDT Pulse 89 01/18/2024 9:56 AM CDT Temperature 36.6 C (97.8 F) 03/30/2022 10:50 AM CDT Respiratory Rate 18 02/18/2022 9:59 AM CDT Oxygen Saturation 95% 01/18/2024 9:56 AM CDT Inhaled Oxygen Concentration - - Weight 90.6 kg (199 lb 11.2 oz) 01/18/2024 9:56 AM CDT Height 162.6 cm (5' 4 ) 01/18/2024 9:56 AM CDT Body Mass Index 34.28 01/18/2024 9:56 AM CDT Plan of Treatment Not on file Insurance [facility] AETNA MEDICARE AET MEDICARE T MEDICARE Care Teams Structures Mechanic Relationship Specialty Start Date End Date Germán Block MD [address] [place] [address] PCP - General Emergency Medicine 03/30/22
--- OUTSIDE RECORDS SUMMARY | 2024-09-11 16:53 | XMS_ITS | Encounter Summary ---
Author Organization [facility] Address [address] [facility] [address] [place] [address] Care Team Providers Care Contour Path Tape Mill Operator Name Role Phone Sammy Quick MD Primary Care Provider Germán Block MD Primary Care Provide r Sammy Quick MD Unavailable [phone] Sammy Quick MD Primary Care Provider Germán Block MD Primary Care Provide r Encounter Details Date Type Department Care Team (Late st Contact Info) Description 11/18/2016 Orders Only [facility] Provider, MD [address] [place] [address] Social History Tobacco Use Types Packs/Day Years Used Date Smoking Tobacco: Never Alcohol Use Standard Drinks/Week Comments No 0 (1 standard drink = 0.6 oz pur e alcohol) Comments Unknown Sex and Gender Information Value Date Recorded Sex Assigned at Not on file 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 us Historical Provider [facility] J[facility] DIAZ Final Result documented in this encounter Visit Diagnoses Not on filedocumented in this encounter Care Teams Contour Path Tape Mill Operator Relationship Specialty Start Date End Date Sammy Quick MD [address] [facility] [address] [place] [address] PCP - General 09/30/16 02/17/22 Germán Block MD [address] [place] [address] PCP - General Emergency Medicine 02/18/22 03/28/22 Sammy Quick MD [address] [address] PCP - General Family Medicine 03/29/22 03/29/22 Germán Block MD [address] [place] [address] PCP - General Emergency Medicine 03/30/22 Sammy Quick MD [address] [facility] [address] [place] [address] Referring Physician Family Medicine 03/29/22 07/31/22 documented as of this encounter
--- OUTSIDE RECORDS SUMMARY | 2024-09-11 16:53 | XMS_ITS | Encounter Summary ---
Author Organization [facility] Address [address] [facility] [address] [place] [address] Care Team Providers Care Ice Skating Coach Name Role Phone Sammy Quick MD Primary Care Provider Germán Block MD Primary Care Provide r Sammy Quick MD Unavailable [phone] Sammy Quick MD Primary Care Provider Germán Block MD Primary Care Provide r Encounter Details Date Type Department Care Team (Late st Contact Info) Description 10/12/2016 Orders Only [facility] Provider, MD [address] [place] [address] Social History Tobacco Use Types Packs/Day Years Used Date Smoking Tobacco: Never Alcohol Use Standard Drinks/Week Comments No 0 (1 standard drink = 0.6 oz pur e alcohol) Comments Unknown Sex and Gender Information Value Date Recorded Sex Assigned at Not on file Legal Sex Female 2:43 PM PLAN MANAGER Gender Identity Not on file Sexual Orientation Not on file documented as of this encounter Plan of Treatment Not on file documented as of this encounter Procedures Procedure Name Priority Date/Time Associated Diagnosis Comments CARDIOLOGY REPORT 10/12/2016 documented in this encounter Results * CARDIOLOGY REPORT (10/12/2016) Anatomical Region Laterality Modality Other Narrative 10/12/2016 Ordered by an unspecified provider. us Historical Provider [facility] DIAZ Final Result documented in this encounter Visit Diagnoses Not on filedocumented in this encounter Care Teams Ice Skating Coach Relationship Specialty Start Date End Date Sammy Quick MD [address] [facility] [address] [place] [address] PCP - General 09/30/16 02/17/22 Germán Block MD [address] [place] [address] PCP - General Emergency Medicine 02/18/22 03/28/22 Sammy Quick MD [address] [address] PCP - General Family Medicine 03/29/22 03/29/22 Germán Block MD [address] [place] [address] PCP - General Emergency Medicine 03/30/22 Sammy Quick MD [address] [facility] [address] [place] [address] Referring Physician Family Medicine 03/29/22 07/31/22 documented as of this encounter
--- OUTSIDE RECORDS SUMMARY | 2024-09-11 16:53 | XMS_ITS | Clinical Summary ---
Author Organization [facility] [address] Address [address] [place] [address] Care Team Providers Care Maintenance Helper Name Role Phone Germán Block MD Primary [...] 10 mg tabletIndication s:Coronary artery disease involving [place] coronary artery of [place] heart without angina pectoris Take 2 tablets [...] an option. Coronary artery disease invo lving [place] coronary artery of [place] heart without angina pectoris 03/28/2017 S/P coronary artery stent placement 03/28/2017 GERD (gastroesophageal reflux disease) 7 Pulmonary fibrosis Surgical History Surgery Date Site/Laterality Comments CHOLECYSTECTOMY Cholecystectomy APPENDECTOMY Appendectomy CORONARY STENT PLACEMENT Medical History Medical History Date Comments Hx Other Medical Gallstones Hyperlipidemia Hyperlipidemia Type 2 diabetes mellitus (HCC) D iabetes type 2 Gastroesophageal reflux disease GERD Interstitial lung disease (HCC) Family History Medical History Relation Name Comments Heart attack Brother 1 Silverio Myocardial infa rction; Rheumatic fever Brother 1 Silverio Car Accident Brother 2 Jhon Car accident; Gout Daughter 1 Hypertension Daughter 1 Kidney failure Daughter 1 Raynaud syndrome Daughter 1 Rheum arthritis Daughter 2 connective tissue disease Daughter 3 to ld she had it but never recurred Diabetes Father Heart failure Father Congestive hea rt failure; Asthma Mother Heart disease Mother Hypertension Mother Other Other 3 Family history of Kidney failure; Cause of : Family history of Kidney failure Heart failure Other 4 Family history of Heart failure; Cause of : Family history of Heart failure Diabetes Other 5 Family history of Diabetes mellitus; Hypertension Sister 1 Luz Post-polio tremor Sister 1 Luz worse in t he last 10 - 12 years No Known Problems Sister 2 Nicky Essential Tremor Neg Hx Parkinsonism Neg Hx Relation Name Status Comments Brother 1 Silverio (Age 52) Brother 2 Jhon (Age 19) Daughter 1 Alive Daughter 2 Alive Daughter 3 Alive Father (Age 85) Mother (Age 54) Other 1 (Age 52) Other 2 (Age 52) Other 3 Other 4 Other 5 Sister 1 Luz Alive Sister 2 Nicky Alive Social History Tobacco Use Types Packs/Day Years [...] on file Legal 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 Gender Identity Not on file Sexual Orientation Not on file Obstetrics History Last Filed Vital Signs Vital Sign Reading [...] 01/18/2024 9:56 AM CDT Plan of Treatment Health Maintenance Due Date Last Done Comments Colon Cancer Screening-Colonoscopy 1950 Fall Risk Assessment 1950 Hepatitis C Screening 1950 Osteoporosis Screening-Bone Density Scan 1950 DTaP/Tdap/Td Vaccine (1 - Tdap) 01/11/1960 Hepatitis B Screening 1967 Pneumococcal vaccine 65+ (1 of 2 - PCV) 01/11/1968 Well Visit 65+ 2014 Zoster Vaccine (2 of 3) 09/03/2015 07/09/2015 Depression Screening 03/30/2023 03/30/2022 Influenza Vaccine (#1) 2024 9, 04/14/2018, 04/05/2017, Additional history exists Insurance [facility] AETNA MEDICARE T MEDICARE AET MEDICARE Care Teams Maintenance Helper Relationship Specialty Start Date End Date Germán Block MD [address] [place] [address] PCP - General Emergency Medicine 03/30/22
== END 2024-09-11 14:52 | disposition home or self-care (01) ==
PROVIDERS: PCP Emergency Medicine; Visit Provider Emergency Medicine
DX: M17.11 Unilateral primary osteoarthritis, right knee (principal)
CPT/HCPCS: 73560

== ENCOUNTER 2024-10-10 11:07 | Outpatient (CLI) | payer MEDICARE, SELFPAY ==
--- NOTE | ~2024-10-10 | MR_ITS ---
MRI of the right knee Clinical history: Pain Technique: Coronal proton density and proton density-weighted images, sagittal proton-density and T2 fat-sat images, and axial proton-density fat-saturated images were acquired. Findings: Anterior and posterior cruciate ligaments are intact. Medial collateral ligament and the la teral collateral ligament, but are intact. Popliteus tendon is intact. There is probable oblique/flap tearing of the anterior horn of the lateral meniscus. No definite medi al meniscal tear seen. There is extensive high-grade chondromalacia patella. There is high-grade chondromalacia extensively involving the lateral aspect of the femoral trochlea. There is probable high-grade chondromalacia at the lateral femoral condyle with reactive subchondral marrow edema/stress response. No definite subch ondral insufficiency fracture evident. There is mild chondral thinning along the medial femoral condy le. Small tricompartmental osteophytes are present. Extensor mechanism is intact. There is small joint effusion, with small Corley's cyst. Impression: Oblique/flattening of the anterior horn lateral meniscus. High-grade chondromalacia of the lateral femoral condyle with probable amorphous stress response cholo ow edema and lateral femoral condyle. No definite insufficiency fracture evident. Consider contusion if there is been direct impaction injury in this region. Advanced degenerative change of the patellofemoral compartment. Mild degenerative change of the media l compartment. Small joint effusion and small Corley's cyst. Reviewed, dictated and finalized at [facility]. Impression: Oblique/flattening of the anterior horn lateral meniscus. High-grade chondromalacia of the lateral femoral condyle with probable amorphou s stress response marrow edema and lateral femoral condyle. No definite insuffi ciency fracture evident. Consider contusion if there is been direct impaction i njury in this region. Advanced degenerative change of the patellofemoral compartment. Mild degenerati ve change of the medial compartment. Small joint effusion and small Corley's cyst.
--- OUTSIDE RECORDS SUMMARY | 2024-10-10 11:55 | XMS_ITS | Encounter Summary ---
Author Organization [facility] Address [address] [facility] [address] [place] [address] Care Team Providers Care Pigment Processor Name Role Phone Sammy Quick MD Primary Care Provider Germán Block MD Primary Care Provide r Sammy Quick MD Unavailable [phone] Sammy Quick MD Primary Care Provider Germán Block MD Primary Care Provide r Encounter Details Date Type Department Care Team (Late st Contact Info) Description 10/04/2016 Orders Only [facility] ProviderAda MD [address] [place] [address] Social History Tobacco Use Types Packs/Day Years Used Date Smoking Tobacco: Never Assessed Comments Unknown Sex and Gender Information Value Date Recorded Sex Assigned at Not on file Legal Sex Female 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 Gender Identity Not on file Sexual Orientation [...] on filedocumented in this encounter Care Teams Pigment Processor Relationship Specialty Start Date End Date Sammy Quick MD [address] [facility] [address] [place] [address] PCP - General 09/30/16 02/17/22 Germán Block MD [address] [place] [address] PCP - General Emergency Medicine 02/18/22 03/28/22 Sammy Quick MD [address] [facility] [address] [address] PCP - General Family Medicine 03/29/22 03/29/22 Germán Block MD [address] [place] [address] PCP - General Emergency Medicine 03/30/22 Sammy Quick MD [address] [facility] [address] [address] Referring Physician Family Medicine 03/29/22 07/31/22 documented as of this encounter
--- OUTSIDE RECORDS SUMMARY | 2024-10-10 11:55 | XMS_ITS | Encounter Summary ---
Author Organization [facility] Address [address] [facility] [address] [place] [address] Care Team Providers Care Sales Attendant Building Materials Name Role Phone Sammy Quick MD Primary Care Provider Germán Block MD Primary Care Provide r Sammy Quick MD Unavailable [phone] Sammy Quick MD Primary Care Provider Germán Block MD Primary Care Provide r Encounter Details Date Type Department Care Team (Late st Contact Info) Description 10/12/2016 Orders Only [facility] Provider, MD [address] [place] [address] Social History Tobacco Use Types Packs/Day Years Used Date Smoking Tobacco: Never Alcohol Use Standard Drinks/Week Comments No 0 (1 standard drink = 0.6 oz pur e alcohol) Comments Unknown Sex and Gender Information Value Date Recorded Sex Assigned at Not on file 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 Gender Identity Not on file Sexual Orientation [...] on filedocumented in this encounter Care Teams Sales Attendant Building Materials Relationship Specialty Start Date End Date Sammy Quick MD [address] [facility] [address] [place] [address] PCP - General 09/30/16 02/17/22 Germán Block MD [address] [place] [address] PCP - General Emergency Medicine 02/18/22 03/28/22 Sammy Quick MD [address] [address] PCP - General Family Medicine 03/29/22 03/29/22 Germán Block MD [address] [place] [address] PCP - General Emergency Medicine 03/30/22 Sammy Quick MD [address] [facility] [address] [place] [address] Referring Physician Family Medicine 03/29/22 07/31/22 documented as of this encounter
--- OUTSIDE RECORDS SUMMARY | 2024-10-10 11:55 | XMS_ITS | Clinical Summary ---
Author Organization [facility] [address] Address [address] [place] [address] Care Team Providers Care Soda Dispenser Name Role Phone Germán Block MD Primary Care Provide r Allergies Active Allergy Reactions Criticality Noted Date Comments Erythromycin Rash Medium Erythromycin Base Rash Medium 02/18/2022 Medications Lactobacillus acidophilus (PROBIOTIC) 10 billion cell capsule take 1 by Oral route once 0 0 7 Active lisinopril (PRINIVIL,ZESTR [place]) 10 mg tablet take 1 tablet by [...] Active Additional Information Patient not taking.Reported on 10/07/2024 Tresiba FlexTouch U-100 100 unit/mL (3 mL) insulin pen INJECT 30 UNITS UNDER THE SKIN QPM 0 Active albuterol HFA (PROVENTIL HFA,VENTOLIN HFA,PROAIR HFA) 90 mcg/actuation inhaler as needed 1 Active cetirizine (ZyrTEC) 10 mg tablet Take 1 tablet every day by oral route as needed. Active naproxen (ALEVE) 220 mg tablet as needed Active TRUEplus Pen Needle 32 gauge x 5/32 needle as directed 2 Active atorvastatin (LIPITOR) 10 mg tabletIndicatio ns:Coronary artery disease involving [place] coronary artery of [place] heart without angina pectoris Take 2 tablets (20 mg total) by mouth daily 0 2 Active levothyroxine (SYNTHROID) 50 mcg tablet Take 1 tablet (50 mcg total) by mouth daily 3 Active Ozempic 0.25 mg or 0.5 mg (2 mg/3 mL) pen injector injection Inject 0.25 mg under the skin 5 Active SITagliptin (JANUVIA) 100 mg tabletIndicatio ns:type 2 diabetes mellitus Take 1 tablet (100 mg total) by mouth daily 025 Discontin ued(Alter little therapy) Active Problems Problem Noted Date Diagnosed Date [...] an option. Coronary artery disease invo lving [place] coronary artery of [place] heart without angina pectoris 03/28/2017 S/P coronary artery stent placement 03/28/2017 GERD (gastroesophageal reflux disease) 7 Pulmonary fibrosis Encounters Date Type Department Care Team Description 10/07/2024 2:00 PM CDT Office Visit [facility] Cardiology [address] [place] [id number] Nadeen Bauman NP Coronary artery disease involving [place] coronary artery of [place] heart without angina pectoris (Primary Dx) from Last 3 Months Surgical History Surgery Date Site/Laterality Comments CHOLECYSTECTOMY [...] on file Legal Sex Female 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 Gender Identity Not on file Sexual Orientation Not on file Obstetrics History Last Filed Vital Signs Vital Sign Reading Time Taken Comments Blood Pressure 130/66 10/07/2024 1:49 PM CDT Pulse 74 10/07/2024 1:49 PM CDT Temperature 36.6 C (97.8 F) 03/30/2022 10:50 AM CDT Respiratory Rate 18 02/18/2022 9:59 AM CDT Oxygen Saturation 97% 10/07/2024 1:49 PM CDT Inhaled Oxygen Concentration - - Weight 84.4 kg (186 lb) 10/07/2024 1:49 PM CDT Height 162.6 cm (5' 4 ) 10/07/2024 1:49 PM CDT Body Mass Index 31.93 10/07/2024 1:49 PM CDT Plan of Treatment Health Maintenance Due [...] 07/09/2015 Depression Screening 03/30/2023 03/30/2022 Influenza Vaccine (Season Ended) 2025 04/21/2019, 04/14/2018, 04/05/2017, Additional history exists Insurance [facility] A[facility] MEDICARE AET MEDICARE AET MEDICARE Care Teams Soda Dispenser Relationship Specialty Start Date End Date Germán Block MD [address] [place] [address] PCP - General Emergency Medicine 03/30/22
--- OUTSIDE RECORDS SUMMARY | 2024-10-10 11:55 | XMS_ITS | Clinical Summary ---
Author Organization [facility] Address Formerly [facility] [place] [address] Care Team Providers Care Aquatic Performer Name Role Phone Sammy Quick MD Primary Care Provider [phone] Allergies Active Allergy Reactions Criticality Noted Date [...] Noted Date Diagnosed Date Small bowel obstruction ([facility]HCC) 2021 Family History Medical History Relation Comments [...] Comments Blood Pressure 144/62 07/28/2021 4:57 AM MANAGER CLINICAL PHARMACY Pulse 72 07/28/2021 4:57 AM MANAGER CLINICAL PHARMACY Temperature 36.6 C (97.9 F) 07/28/2021 4:57 AM MANAGER CLINICAL PHARMACY Respiratory Rate 18 07/28/2021 4:57 AM MANAGER CLINICAL PHARMACY Oxygen Saturation 98% 07/28/2021 4:57 AM MANAGER CLINICAL PHARMACY Inhaled Oxygen Concentration - - Weight 90.4 kg (199 lb 4.7 oz) 07/28/2021 4:57 A M MANAGER CLINICAL PHARMACY Height 162.6 cm (5' 4 ) 07/25/2021 7:56 PM MANAGER CLINICAL PHARMACY Body Mass Index 34.21 07/25/2021 7:56 PM MANAGER CLINICAL PHARMACY Plan of Treatment Health Maintenance Due Date Last Done Comments Colorectal Cancer Screening Colonoscopy (10 Years) 1949 Hepatitis C 1967 DTaP, Tdap and Td Vaccines ( 1 - Tdap) 01/11/1968 Annual Medicare Wellness Visit 2014 Dexa Scan (General) 2014 Pneumococcal Vaccine: 65+ Years (1 of 1 - PCV) 2014 Zoster Vaccines (2 of 3) 09/03/2015 07/09/2015 RSV Immunization or 60+ Years (1 - 1-dose 75+ series) 01/11/2024 COVID-19 Vaccine (4 - 2023-2 5 season) 2024 07/02/2021, 09/28/2020, 09/07/2020 Meningococcal B Vaccine Aged Out No l onger eligible based on patient's age to complete this topic Meningococcal Vaccine Aged Out No marina donna eligible based on patient's age to complete this topic RSV Immunizations Under 20 Months Aged Out No longer eligible b ased on patient's age to complete this topic Goals Goal Patient Goal Type Associated Problems Recent Progress Patient-Stated? Author Patient will return to prior living situation and remain independent in ADLs upon discharge from hospital [facility] [place] Argueta, RN Insurance AET[employer] Advance Directives * Full Code (Latest Code Status on File) Date Activated Date Inactivated Comments 07/25/2021 7:46 PM 07/28/2021 5:26 PM Care Teams Aquatic Performer Relationship Specialty Start Date End Date Sammy Quick MD [address] [place] [address] PCP - General FAMILY PRACTICE 07/26/21
--- OUTSIDE RECORDS SUMMARY | 2024-10-10 11:55 | XMS_ITS | Encounter Summary ---
Author Organization [facility] Address [address] [facility] [address] [place] [address] Care Team Providers Care Filament Tester Name Role Phone Sammy Quick MD Primary Care Provider Germán Block MD Primary Care Provide r Sammy Quick MD Unavailable [phone] Sammy Quick MD Primary Care Provider Germán Block MD Primary Care Provide r Encounter Details Date Type Department Care Team (Late st Contact Info) Description 11/18/2016 [facility] Only [facility] Provider, MD Ada [address] [place] [address] Social History Tobacco Use Types Packs/Day Years Used Date Smoking Tobacco: Never Alcohol Use Standard Drinks/Week Comments No 0 (1 standard drink = 0.6 oz pur e alcohol) Comments Unknown Sex and Gender Information Value Date Recorded Sex Assigned at Not on file 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 Gender Identity Not on file Sexual Orientation [...] on filedocumented in this encounter Care Teams Filament Tester Relationship Specialty Start Date End Date Sammy Quick MD [address] [facility] [address] [place] [address] PCP - General 09/30/16 02/17/22 Germán Block MD [address] [place] [address] PCP - General Emergency Medicine 02/18/22 03/28/22 Sammy Quick MD [address] [address] PCP - General Family Medicine 03/29/22 03/29/22 Germán Block MD [address] [place] [address] PCP - General Emergency Medicine 03/30/22 Sammy Quick MD [address] [facility] [address] [place] [address] Referring Physician Family Medicine 03/29/22 07/31/22 documented as of this encounter
--- OUTSIDE RECORDS SUMMARY | 2024-10-10 11:55 | XMS_ITS | Referral Summary ---
Author Organization [facility] [address] Address [address] [place] [address] Care Team Providers Care Pharmacy Operations Specialist Name Role Phone Germán Block MD Primary Care Provide r Encounters Date Type Department Care Team Description 10/07/2024 2:00 PM CDT Office Visit [facility] Cardiology [address] [place] [address] Nadeen Bauman NP Coronary artery disease involving belkofski coronary artery of belkofski heart without angina pectoris (Primary Dx) from Last 3 Months Allergies Active Allergy Reactions Criticality Noted Date [...] 10 mg tabletIndicatio ns:Coronary artery disease involving belkofski coronary artery of belkofski heart without angina pectoris Take 2 tablets [...] an option. 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
--- OUTSIDE RECORDS SUMMARY | 2024-10-10 11:55 | XMS_ITS | Encounter Summary ---
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 Gender Identity Not on file Sexual Orientation [...] on filedocumented in this encounter Care Teams Motor Generator Set Operator Relationship Specialty Start Date End Date Sammy Quick MD [address] [address] PCP - General 09/30/16 02/17/22 Germán Block MD [address] [place] [address] PCP - General Emergency Medicine 02/18/22 03/28/22 Sammy Quick MD [address] [facility] [address] [address] PCP - General Family Medicine 03/29/22 03/29/22 Germán Block MD [address] [place] [address] PCP - General Emergency Medicine 03/30/22 Sammy Quick MD [address] [facility] [address] [address] Referring Physician Family Medicine 03/29/22 07/31/22 documented as of this encounter
== END 2024-10-10 11:08 | disposition home or self-care (01) ==
PROVIDERS: PCP Emergency Medicine; Visit Provider Emergency Medicine
DX: M23.341 Other meniscus derangements, anterior horn of lateral meniscus, right knee (principal); M94.261 Chondromalacia, right knee; M17.11 Unilateral primary osteoarthritis, right knee; M25.461 Effusion, right knee; M71.21 Synovial cyst of popliteal space [Baker], right knee
CPT/HCPCS: 73721

== ENCOUNTER 2024-10-24 03:41 | Day surgery (SDC) | payer MEDICARE, SELFPAY ==
[2024-10-14 14:18] VITALS: BMI 31.9
--- OUTSIDE RECORDS SUMMARY | 2024-10-24 03:44 | XMS_ITS | Referral Summary ---
Author Organization [facility] [address] Address [address] [place] [address] Care Team Providers Care Network Project Manager Name Role Phone Germán Block MD Primary Care Provide r Encounters Date Type Department Care Team Description 10/07/2024 2:00 PM CDT Office Visit [facility] Cardiology [address] [place] [address] Nadeen Bauman NP Coronary artery disease involving chefornak coronary artery of chefornak heart without angina pectoris (Primary Dx) from [...] 10 mg tabletIndicatio ns:Coronary artery disease involving chefornak coronary artery of chefornak heart without angina pectoris Take 2 tablets [...] an option. 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 Gender Identity Not on file Sexual Orientation [...] Plan of Treatment Not on file Insurance [facility] MEDIC[facility] Member Subscriber Plan / Payer (Ef fective 2022-Present) Name:Kelsey Marion Relation to Subscriber:Self Name:DoniKelsey Payer ID:[id number] ([facility]) Type:AET MEDICARE Address: [facility] [id number] [place] [phone] MEDICARE Member Subscriber Plan / Payer (Ef fective 2022-) Name:Kelsey Marion Relation to Subscriber:Self Name:Kelsey Marion Payer ID:[id number] ([facility]) Type:AET MEDICARE Address: [facility] [id number] [place] [phone] [facility] MEDICARE Care Teams Network Project Manager Relationship Specialty Start Date End Date Germán Block MD [address] [place], [place] [address] PCP - General Emergency Medicine 03/30/22
--- OUTSIDE RECORDS SUMMARY | 2024-10-24 03:44 | XMS_ITS | Clinical Summary ---
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 Pulse 72 07/28/2021 4:57 AM CATHODE RAY TUBE SALVAGE PROCESSOR Temperature 36.6 C (97.9 F) 07/28/2021 4:57 AM CATHODE RAY TUBE SALVAGE PROCESSOR Respiratory Rate 18 07/28/2021 4:57 AM CATHODE RAY TUBE SALVAGE PROCESSOR Oxygen Saturation 98% 07/28/2021 4:57 AM CATHODE RAY TUBE SALVAGE PROCESSOR Inhaled Oxygen Concentration - - Weight 90.4 kg (199 lb 4.7 oz) 07/28/2021 4:57 A M CATHODE RAY TUBE SALVAGE PROCESSOR Height 162.6 cm (5' 4 ) 07/25/2021 7:56 PM CATHODE RAY TUBE SALVAGE PROCESSOR Body Mass Index 34.21 07/25/2021 7:56 PM CATHODE RAY TUBE SALVAGE PROCESSOR Plan of Treatment Health Maintenance Due Date Last Done Comments Colorectal Cancer Screening Colonoscopy (10 Years) 1949 Hepatitis C 1967 DTaP, Tdap and Td Vaccines ( 1 - Tdap) 01/11/1968 Pneumococcal Vaccine: 50+ Years (1 of 1 - PCV) 1999 Annual Medicare Wellness Visit 2014 Dexa Scan (General) 2014 Zoster Vaccines (2 of 3) 09/03/2015 [...] independent in ADLs upon discharge from hospital [facility] [place] Argueta, RN Insurance [employer]ET[employer] Advance Directives * Full Code (Latest Code Status on File) Date Activated Date Inactivated Comments 07/25/2021 7:46 PM 07/28/2021 5:26 PM Care Teams Bridge Engineer Relationship Specialty Start Date End Date Sammy Quick MD [address] [place] [address] PCP - General FAMILY PRACTICE 07/26/21
--- OUTSIDE RECORDS SUMMARY | 2024-10-24 03:45 | XMS_ITS | Encounter Summary ---
Author Organization [facility] Address [address] [facility] [address] [place] [address] Care Team Providers Care Slot Operations Manager Name Role Phone Sammy Quick MD Primary Care Provider Germán Block MD Primary Care Provide r Sammy Quick MD Unavailable [phone] Sammy Quick MD Primary Care Provider Germán Block MD Primary Care Provide r Encounter Details Date Type Department Care Team (Late st Contact Info) Description 10/04/2016 Orders Only [facility] ProviderAda MD [address] [place] [address] Social History Tobacco Use Types Packs/Day Years Used Date Smoking Tobacco: Never Assessed Comments Unknown Sex and Gender Information Value Date Recorded Sex Assigned at Not on file 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 Gender Identity Not on file Sexual Orientation [...] on filedocumented in this encounter Care Teams Slot Operations Manager Relationship Specialty Start Date End Date Sammy Quick MD [address] [facility] [address] [place] [address] PCP - General 09/30/16 02/17/22 Germán Block MD [address] [place] [address] PCP - General Emergency Medicine 02/18/22 03/28/22 Sammy Quick MD [address] [facility] [address] [address] PCP - General Family Medicine 03/29/22 03/29/22 Germán Block MD [address] [place] [address] PCP - General Emergency Medicine 03/30/22 Sammy Quick MD [address] [facility] [address] [address] Referring Physician Family Medicine 03/29/22 07/31/22 documented as of this encounter
--- OUTSIDE RECORDS SUMMARY | 2024-10-24 03:45 | XMS_ITS | Encounter Summary ---
Author Organization 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 Gender Identity Not on file Sexual Orientation [...] on filedocumented in this encounter Care Teams Crayon Sorting Machine Feeder Relationship Specialty Start Date End Date Sammy Quick MD [address] [address] PCP - General 09/30/16 02/17/22 Germán Block MD [address] [place] [address] PCP - General Emergency Medicine 02/18/22 03/28/22 Sammy Quick MD [address] [facility] [address] [address] PCP - General Family Medicine 03/29/22 03/29/22 Germán Block MD [address] [place] [address] PCP - General Emergency Medicine 03/30/22 Sammy Quick MD [address] [facility] [address] [address] Referring Physician Family Medicine 03/29/22 07/31/22 documented as of this encounter
--- OUTSIDE RECORDS SUMMARY | 2024-10-24 03:45 | XMS_ITS | Encounter Summary ---
Author Organization [facility] Address [address] [facility] [address] [place] [address] Care Team Providers Care Fish Salter Name Role Phone Sammy Quick MD Primary Care Provider Germán Block MD Primary Care Provide r Sammy Quick MD Unavailable [phone] Sammy Quick MD Primary Care Provider Germán Block MD Primary Care Provide r Encounter Details Date Type Department Care Team (Late st Contact Info) Description 11/18/2016 Orders Only [facility] Provider, MD Ada [address] [place] [address] Social History Tobacco Use Types Packs/Day Years Used Date Smoking Tobacco: Never Alcohol Use Standard Drinks/Week Comments No 0 (1 standard drink = 0.6 oz pur e alcohol) Comments Unknown Sex and Gender Information Value Date Recorded Sex Assigned at Not on file 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 Gender Identity Not on file Sexual Orientation [...] on filedocumented in this encounter Care Teams Fish Salter Relationship Specialty Start Date End Date Sammy Quick MD [address] [facility] [address] [place] [address] PCP - General 09/30/16 02/17/22 Germán Block MD [address] [place] [address] PCP - General Emergency Medicine 02/18/22 03/28/22 Sammy Quick MD [address] [address] PCP - General Family Medicine 03/29/22 03/29/22 Germán Block MD [address] [place] [address] PCP - General Emergency Medicine 03/30/22 Sammy Quick MD [address] [facility] [address] [place] [address] Referring Physician Family Medicine 03/29/22 07/31/22 documented as of this encounter
--- OUTSIDE RECORDS SUMMARY | 2024-10-24 03:45 | XMS_ITS | Clinical Summary ---
Author Organization [facility] [address] Address [address] [place] [address] Care Team Providers Care Electric Meter Inspector Name Role Phone Germán Block MD Primary [...] 10 mg tabletIndicatio ns:Coronary artery disease involving douglas coronary artery of douglas heart without angina pectoris Take 2 tablets [...] an option. 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
--- OUTSIDE RECORDS SUMMARY | 2024-10-24 03:45 | XMS_ITS | Encounter Summary ---
Author Organization [facility] Address [address] [facility] [address] [place] [address] Care Team Providers Care Quantitative Analyst Name Role Phone Sammy Quick MD Primary Care Provider Germán Block MD Primary Care Provide r Sammy Quick MD Unavailable [phone] Sammy Quick MD Primary Care Provider Germán Block MD Primary Care Provide r Encounter Details Date Type Department Care Team (Late st Contact Info) Description 10/12/2016 Orders Only [facility] Provider, MD [address] [place] [address] Social History Tobacco Use Types Packs/Day Years Used Date Smoking Tobacco: Never Alcohol Use Standard Drinks/Week Comments No 0 (1 standard drink = 0.6 oz pur e alcohol) Comments Unknown Sex and Gender Information Value Date Recorded Sex Assigned at Not on file 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 Gender Identity Not on file Sexual Orientation [...] on filedocumented in this encounter Care Teams Quantitative Analyst Relationship Specialty Start Date End Date Sammy Quick MD [address] [facility] [address] [place] [address] PCP - General 09/30/16 02/17/22 Germán Block MD [address] [place] [address] PCP - General Emergency Medicine 02/18/22 03/28/22 Sammy Quick MD [address] [address] PCP - General Family Medicine 03/29/22 03/29/22 Germán Block MD [address] [place] [address] PCP - General Emergency Medicine 03/30/22 Sammy Quick MD [address] [facility] [address] [place] [address] Referring Physician Family Medicine 03/29/22 07/31/22 documented as of this encounter
[2024-10-24 07:52] VITALS: BP 144/66; PULSE 80; RESP 16; TEMP 35.7; O2SAT 97; BMI 30.9
[2024-10-24] MEDS: LACTATED RINGERS 1,000 ML 150 ML IV CONT (07:59)
--- NOTE | 2024-10-24 08:07 | WPDANESEPPF ---
Anes - Initial Pre Proc Eval Procedure: Operation Date: 10/24/24 08:30 Proposed Procedures p Screening Colonoscopy - Eh Olguin MD Date/Time: 10/24/24 08:07 Surgeon: Eh Olguin MD Pre Op Diagnosis: personal hx colon polyps Patient Data Age: 74 Gender: F Height: 1.63 m Weight: 81.9 kg Last Vital Signs Temp 96.3 F L 10/24/24 07:52 Pulse 80 10/24/24 07:52 Resp 16 10/24/24 07:52 BP 144/66 H 10/24/24 07:52 Pulse Ox 97 10/24/24 07:52 O2 Del Method Room Air 10/24/24 07:52 Allergies Allergy/AdvReac Type Severity Reaction Status Date / Time erythromycin base Allergy Mild rash Verified 10/24/24 07:49 nitrofurantoin (From AdvReac Intermediate Nausea Verified 10/24/24 07:49 Macrobid) Home Medications ?Medication ?Instructions ?Recorded ?Confirmed ?Type aspirin 81 mg chewable tablet 81 mg PO DAILY 05/27/19 10/24/24 History acidophilus 100 million 1 cap PO DAILY 05/08/20 10/24/24 History cell-pectin, citrus 10 mg capsule (Acidophilus Probiotic) naproxen sodium 220 mg capsule 220 mg PO DAILY PRN Arthiritis 05/26/23 10/14/24 History (Aleve) lisinopril 10 mg tablet See Rx Instructions .Route 10/11/23 10/24/24 Rx .COMPLEX #90 tabs insulin degludec 100 unit/mL (3 See Rx Instructions .Route 12/07/23 10/24/24 Rx mL) subcutaneous pen (Tresiba .COMPLEX #45 mL FlexTouch U-100 insulin) metformin 500 mg tablet,extended See Rx Instructions .Route 03/01/24 10/24/24 Rx release 24 hr .COMPLEX #360 tabs pen needle, diabetic 32 gauge x #100 ea 06/13/24 09/20/24 Rx 5/32 (Easy Comfort Pen [place]) esomeprazole magnesium 40 mg See Rx Instructions .Route 06/14/24 10/24/24 Rx capsule,delayed release .COMPLEX #90 caps albuterol sulfate 90 mcg/actuation See Rx Instructions .Route 08/14/24 10/14/24 Rx aerosol inhaler .COMPLEX #25.5 grams cholecalciferol (vitamin D3) 50 50 mcg PO DAILY #90 caps 08/14/24 10/24/24 Rx mcg (2,000 unit) capsule atorvastatin 10 mg tablet See Rx Instructions .Route 08/26/24 10/24/24 Rx .COMPLEX #90 tabs levothyroxine 50 mcg tablet See Rx Instructions .Route 09/09/24 10/24/24 Rx .COMPLEX #90 tabs semaglutide 0.25 mg or 0.5 mg (2 See Rx Instructions .Route 09/13/24 10/24/24 Rx mg/3 mL) subcutaneous pen injector .COMPLEX #3 mL (Ozempic) blood-glucose sensor (FreeStyle #1 ea 09/17/24 09/20/24 Rx Rachel 3 Plus Sensor device) Patient hx anesthesia problems: none Family hx anesthesia problems: none Results Review: All pre-operative results and documents have been reviewed as part of the pre-operative evaluation. [facility] Past Medical History Medical History Partial small bowel obstruction Vomiting Dysuria UTI (urinary tract infection) Excessive daytime sleepiness Obstructive sleep apnea syndrome in adult Diabetic polyneuropathy Benign essential tremor Intention tremor Adenomatous colon polyp Hypertensive heart disease without CHF Left hip pain Cervical radiculopathy Long-term insulin use Type 2 diabetes mellitus without complications Numbness and tingling of left upper extremity Vitamin D deficiency, unspecified Fatty liver Metabolic syndrome Hyperlipidemia Essential hypertension CAD (coronary artery disease) Type 2 diabetes mellitus with hyperglycemia Surgical History Surgical History History of coronary artery stent placement S/P arterial stent Family History Family History Mother Family history of kidney disease Family history of coronary artery disease Hypertension Father Family history of diabetes mellitus in first degree relative Family history of coronary artery disease Diabetes mellitus Sibling Family history of coronary artery disease Other Family history of cardiovascular disease Social History Social History Social History: Caffeine-coffee Smoking status: Never smoker Second hand tobacco smoke exposure: No Alcohol intake: never Alcohol use details: special occasions Substance use: never Substance use type: does not use Do You Feel Safe in your Home?: Yes Lack of Transportation: No Lack of Food: Never True Current Housing: I Have Housing Concerned About Future Housing: No Difficulty Paying Gas/Electric Bills: No Difficulty Paying for Meds: No Currently Unemployed: No Education: High School Diploma/GED Difficulty w/ Childcare or Family Care: No Living arrangements: with family Occupation/Education: retired Gender identity (if verbalized by the patient): Female Sexual Orientation (if Verbalized by the Patient): Straight or Heterosexual Spiritual care concerns: No Anes - Eval Final PreProcedure Day of Procedure 10/24/24 08:07 Patient weight: obese Heart: regular rate and rhythm Lungs: clear to auscultation Airway: Mallampati scale class II Neurological: alert and oriented Last oral intake: >/= 8 hours ASA classification: III Emergent: no Anesthetic plan: proceed Anesthesia type and monitoring: general GIVS and standard monitoring Results Review: All pre-operative results and documents have been reviewed as part of the pre-operative evaluation. Informed Consent: The patient's anesthetic plan and its attendant risks and benefits were discussed with the patient/family/POA. Questions were solicited and answers provided to the satisfaction of the patient/family/POA.
--- NOTE | 2024-10-24 08:28 | P.HP_ITS ---
History of Present Illness History of Present Illness Consent: Risks, benefits, and alternatives have been discussed and questions answered. Patient agrees to proceed with procedure. Chief complaint: personal hx colon polyps Narrative: Kelsey Marion is a 74 year old female with colon polyp in 2019 Review of Systems Review of Systems: All systems reviewed & are unremarkable except as noted in HPI and below PMFSH Past Medical History Medical History Partial small bowel obstruction Vomiting Dysuria UTI (urinary tract infection) Excessive daytime sleepiness Obstructive sleep apnea syndrome in adult Diabetic polyneuropathy Benign essential tremor Intention tremor Adenomatous colon polyp Hypertensive heart disease without CHF Left hip pain Cervical radiculopathy Long-term insulin use Type 2 diabetes mellitus without complications Numbness and tingling of left upper extremity Vitamin D deficiency, unspecified Fatty liver Metabolic syndrome Hyperlipidemia Essential hypertension CAD (coronary artery disease) Type 2 diabetes mellitus with hyperglycemia Surgical History Surgical History History of coronary artery stent placement S/P arterial stent Family History Family History Mother Family history of kidney disease Family history of coronary artery disease Hypertension Father Family history of diabetes mellitus in first degree relative Family history of coronary artery disease Diabetes mellitus Sibling Family history of coronary artery disease Other Family history of cardiovascular disease Social History Social History Social History: Caffeine-coffee Smoking status: Never smoker Second hand tobacco smoke exposure: No Alcohol intake: never Alcohol use details: special occasions Substance use: never Substance use type: does not use Do You Feel Safe in your Home?: Yes Lack of Transportation: No Lack of Food: Never True Current Housing: I Have Housing Concerned About Future Housing: No Difficulty Paying Gas/Electric Bills: No Difficulty Paying for Meds: No Currently Unemployed: No Education: High School Diploma/GED Difficulty w/ Childcare or Family Care: No Living arrangements: with family Occupation/Education: retired Gender identity (if verbalized by the patient): Female Sexual Orientation (if Verbalized by the Patient): Straight or Heterosexual Spiritual care concerns: No Meds Home Medications and Allergies Home Medications ?Medication ?Instructions ?Recorded ?Confirmed ?Type aspirin 81 mg chewable tablet 81 mg PO DAILY 05/27/19 10/24/24 History acidophilus 100 million 1 cap PO DAILY 05/08/20 10/24/24 History cell-pectin, citrus 10 mg capsule (Acidophilus Probiotic) naproxen sodium 220 mg capsule 220 mg PO DAILY PRN Arthiritis 05/26/23 10/14/24 History (Aleve) lisinopril 10 mg tablet See Rx Instructions .Route 10/11/23 10/24/24 Rx .COMPLEX #90 tabs insulin degludec 100 unit/mL (3 See Rx Instructions .Route 12/07/23 10/24/24 Rx mL) subcutaneous pen (Tresiba .COMPLEX #45 mL FlexTouch U-100 insulin) metformin 500 mg tablet,extended See Rx Instructions .Route 03/01/24 10/24/24 Rx release 24 hr .COMPLEX #360 tabs pen needle, diabetic 32 gauge x #100 ea 06/13/24 09/20/24 Rx 5/32 (Easy Comfort Pen [place]) esomeprazole magnesium 40 mg See Rx Instructions .Route 06/14/24 10/24/24 Rx capsule,delayed release .COMPLEX #90 caps albuterol sulfate 90 mcg/actuation See Rx Instructions .Route 08/14/24 10/14/24 Rx aerosol inhaler .COMPLEX #25.5 grams cholecalciferol (vitamin D3) 50 50 mcg PO DAILY #90 caps 08/14/24 10/24/24 Rx mcg (2,000 unit) capsule atorvastatin 10 mg tablet See Rx Instructions .Route 08/26/24 10/24/24 Rx .COMPLEX #90 tabs levothyroxine 50 mcg tablet See Rx Instructions .Route 09/09/24 10/24/24 Rx .COMPLEX #90 tabs semaglutide 0.25 mg or 0.5 mg (2 See Rx Instructions .Route 09/13/24 10/24/24 Rx mg/3 mL) subcutaneous pen injector .COMPLEX #3 mL (Ozempic) blood-glucose sensor (FreeStyle #1 ea 09/17/24 09/20/24 Rx Rachel 3 Plus Sensor device) Allergies Allergy/AdvReac Type Severity Reaction Status Date / Time erythromycin base Allergy Mild rash Verified 10/24/24 07:49 nitrofurantoin (From AdvReac Intermediate Nausea Verified 10/24/24 07:49 Macrobid) Vital Signs Vital Signs - 24 hr 10/24/24 07:52 Temperature 96.3 F L Pulse Rate 80 Respiratory Rate 16 Blood Pressure 144/66 H Pulse Oximetry 97 Oxygen Delivery Room Air Exam Const: General: comfortable and no acute distress HENMT: Face/Nose/Sinus: Normal nares present Eyes: General: appearance normal, both eyes and all related structures Neck: Neck: no JVD Resp: Auscultation: clear to auscultation bilaterally Cardio: Rate: regular rate Rhythm: regular rhythm GI: Inspection: non-distended GI Palp: Yes Soft to palpation Skin: General skin exam: normal color Neuro: Speech: normal speech Extrem: General: normal to inspection Psych: Mental Status: mental status grossly normal Assessment and Plan Assessment and plan (1) Adenomatous colon polyp: Code(s): D12.6 - Benign neoplasm of colon, unspecified Status: Acute Assessment and Plan: colonoscopy
[2024-10-24 08:41] VITALS: BP 122/67; PULSE 71; RESP 15; O2SAT 97
[2024-10-24 08:51] VITALS: BP 125/54; PULSE 77; RESP 25; O2SAT 98
--- NOTE | 2024-10-24 08:54 | SUR.PHASEII ---
patients blood sugar is 107 via continuous glucose monitor.
[2024-10-24 09:01] VITALS: BP 127/64; PULSE 71; RESP 20; O2SAT 98
== END 2024-10-24 09:07 | disposition home or self-care (01) ==
PROVIDERS: PCP Emergency Medicine; Visit Provider Internal Medicine Gastroenterology
PROC: 0DJD8ZZ Inspection of Lower Intestinal Tract, Via Natural or Artificial Opening Endoscopic (ICD-10-PCS; CPT 45378; principal; 2024-10-24 08:30)
DX: Z12.11 Encounter for screening for malignant neoplasm of colon (principal); D12.3 Benign neoplasm of transverse colon; D12.4 Benign neoplasm of descending colon; K64.8 Other hemorrhoids; K57.30 Diverticulosis of large intestine without perforation or abscess without bleeding; E78.5 Hyperlipidemia, unspecified; I25.10 Atherosclerotic heart disease of native coronary artery without angina pectoris; E11.65 Type 2 diabetes mellitus with hyperglycemia; E11.42 Type 2 diabetes mellitus with diabetic polyneuropathy; G47.33 Obstructive sleep apnea (adult) (pediatric); E55.9 Vitamin D deficiency, unspecified; E88.810 Metabolic syndrome; G25.0 Essential tremor; G25.2 Other specified forms of tremor; I11.9 Hypertensive heart disease without heart failure; M54.12 Radiculopathy, cervical region; E66.9 Obesity, unspecified; Z68.31 Body mass index [BMI] 31.0-31.9, adult; Z79.82 Long term (current) use of aspirin; Z79.1 Long term (current) use of non-steroidal anti-inflammatories (NSAID); Z79.84 Long term (current) use of oral hypoglycemic drugs; Z79.51 Long term (current) use of inhaled steroids; Z79.85 Long-term (current) use of injectable non-insulin antidiabetic drugs; Z79.4 Long term (current) use of insulin; Z98.890 Other specified postprocedural states; Z95.5 Presence of coronary angioplasty implant and graft; Z87.19 Personal history of other diseases of the digestive system; Z82.49 Family history of ischemic heart disease and other diseases of the circulatory system
CPT/HCPCS: 45385; 88305; J2704; J7120

== ENCOUNTER 2024-11-13 13:20 | Outpatient (RCR) | payer MEDICARE, SELFPAY ==
--- NOTE | 2024-11-13 14:30 | OPREHPOC ---
Outpatient Therapy Plan of Care This is a Multidisciplinary Plan of Care that may contain components documented by all disciplines (PT, OT, and ST.) PT Problem 1 PT Problem #1 Knowledge Deficit PT Goal 1 Goal / Goal Update independent and compliant with HEP Target Visit 6 PT Problem 2 PT Problem #2 Pain PT Goal 1 Goal / Goal Update decrease pain at worst to 2/10 or less in the R knee Target Visit 12 PT Problem 3 PT Problem #3 Impaired Range of Motion PT Goal 1 Goal / Goal Update 0-120 degrees or better active R knee rom less than 20 degrees tightness of the bilateral hamstrings per the 90/90 test mild or less bilateral quadriceps mm tightness Target Visit 12 PT Problem 4 PT Problem #4 Impaired Strength PT Goal 1 Goal / Goal Update 4+/5 or better bilateral hip strength Target Visit 12 PT Problem 5 PT Problem #5 Impaired Functional Mobility PT Goal 1 Goal / Goal Update LEFS to display 30% or less functional deficits patient to ambulate with normal gait mechanics for 6 minutes without rest and more than 800ft patient to tolerate sitting 2 hours without increased R knee pain patient to ambulate up and down steps with reciprocal mechanics with 1 hand rail or less and no increased pain Target Visit 12
--- NOTE | 2024-11-13 14:30 | PTOPEVAL1 ---
Assessment and note entered by JT File, PT Evaluation Information Assessment Status Evaluation ICD-10 Condition Codes (PT) Pain in right knee M25.561 Other ICD-10 Condition Codes ( M17.11; S83.281A PT) Onset 08/31/24 Subjective Information patient reports she began having pain in the R knee early august. she reports she was walking and heard a pop. she reports it has been bothering her since. she reports xrays did not show anything, but she did have an MRI that showed a tear in her meniscus. she reports the ortho also informed her of her meniscus wearing away and a bakers cyst. she reports surgery is one option, but the ortho wanted to try other measures first. she reports she did have an injection which helped last week, but does not feel it is still helping. she reports she really struggled to get up the steps this morning. she reports she has increased pain in the R knee with increased closed chain activities, and also keeping it bent to long (such as when sitting). she reports she follows up with him in 6 months. Reported Pain Level Pain Score 2: Self Report Assessment PT Clinical Summary mrs. espinoza is a pleasant 74 yo woman who presents to skilled PT services for evaluation and treatment of R knee pain. she presents with signs and symptoms consistent with her referring diagnosis of R lateral meniscus tear and R patellar compartment OA. she displays decreased R knee rom, bilateral hip weakness, antalgic gait mechanics, and deficits in functional activities per the LEFS. continued skilled PT is indicated to improve these objective/functional deficits to progress towards a return to her prior level functional activity performance and quality of life. Plan of Care Interventions Electrical Stimulation,Gait Training,Hot Pack/Cold Pack,Manual Therapy,Neuro Re-education,Patient/ Caregiver Education,Therapeutic Activities, Therapeutic Exercise PT Services Indicated Yes Treatment Frequency and 3x weekly for 12 visits Duration These treatments will address the objective and functional deficits as defined above. The patient will be advanced safely and appropriately in order for the patient to progress towards his/her prior level of function. Additional exercises will be introduced and as well as a comprehensive home exercise program upon discharge, if needed, ?to ensure carryover of functional gains achieved in the clinic. This treatment plan has been reviewed and agreement upon by the patient.
== END 2025-02-11 23:59 | disposition home or self-care (01) ==
LOC: CHSPT 13:20
PROVIDERS: Visit Provider Orthopaedic Surgery
DX: M17.11 Unilateral primary osteoarthritis, right knee (principal); S83.281A Other tear of lateral meniscus, current injury, right knee, initial encounter
CPT/HCPCS: 97014; 97110; 97112; 97161; G0283